=== PATIENT | female | born 1985 | race Caucasian/White ===

== ENCOUNTER 2016-04-18 02:02 | Emergency (ER) | payer OTHER ==
--- NOTE | 2016-04-18 03:17 | ED ORDER SUMMARY ---
..... Patient: ENRIKE PRADO OrderSheet [facility]ly [facility] VisitID: [id number] [place] [address] 30y, F Registration Date/Time: 04/18/2016 ORDER SHEET Weight: 68.0 kg (stated) Allergies: No Known Drug Allergy GENERAL ORDERS: UA-Culture if indicated Urgent (02:04/18/2016 Jake ROSSI) (Ack 2:32 Marie) (2:36 GMarshall R.N.) Urine Urgent (:04/18/2016 Jake ROSSI) (Ack 2:32 Marie) (2:36 GMarshall R.N.) MEDICATION ORDERS: Ibuprofen PO 600 mg (NOW) (02:04/18/2016 Jake ROSSI) (2:38 GMarshall R.N.) IV FLUIDS: ORDER SHEET NOTES: [Electronically signed by Omega Engel R.N. (03:04/18/2016)] [Electronically signed by Delbert Andino MD (09:22 04/19/2016)] [Electronically locked/signed by Omega Engel R.N. (:04/18/2016)]
--- NOTE | 2016-04-18 03:17 | ED NURSING NOTES ---
Clinical Report - Nurses [facility] [address] [place] [address] 04/18/2016 2:03 Patient: ENRIKE PRADO TRIAGE Triage time 02:06. Acuity: LEVEL 3. Chief Complaint: BACK PAIN. Alert. No acute distress. --02: Omega Engel R.N. 02:06 04/18/16. BP: 109/57. HR: 65. RR: 18. O2 saturation: 100%. Temp: 98.4 F. Pain level now 12/17. --02: Omega Engel R.N. Weight: 68 kg stated. Height/Length: 65 inches Per Patient. BMI: 25. --02:08 mOega Engel R.N. Medications None. --02: Omega Engel R.N. Allergies No Known Drug Allergy. --02:07 Omega Engel R.N. History Arrived by private vehicle. Historian: patient. This started just prior to arrival. SOCIAL HX: Unknown if ever smoked. FALL RISK ASSESSMENT: Fall risk assessment completed. No fall risk identified. --02:09 Omega Engel R.N. ( Was awakened by back pain. Pain is low back pain "shooting" down legs). --02:17 Omega Engel R.N. PROBLEMS: Dizziness. Headache. UTI - Urinary Tract Infection. --02:07 Omega Engel R.N. Interventions ID band on patient. --02:09 Omega Engel R.N. PHYSICAL ASSESSMENT GENERAL / NEURO / PSYCH: Alert. Oriented X 4. Appears in no acute distress. RESPIRATORY: Respirations not labored. --02:10 Omega Engel R.N. NURSING PROGRESS NOTES Patient identifiers checked. Call light placed in reach. Bed placed in lowest position. --02:10 Omega Engel R.N. 02:38 04/18/2016 Ibuprofen PO Tablets 600 mg given. --02:38 Omega Engel R.N. 03:23 04/18/2016 Ibuprofen PO Response: pain is improving. --03:23 Omega Engel R.N. DISPOSITION / DISCHARGE Condition at departure: improved. No learning barriers present. Discharge instructions provided and reviewed with the patient. Patient verbalized understanding. Written instructions provided in Sami. The patient was discharged by the physician. She was discharged home. --03:25 Omega Engel R.N. 03:23 04/18/16. BP: 110/67. HR: 70. RR: 20. O2 saturation: 100%. Temp: 98 F. Pain level now 06/17. --03:25 Omega Engel R.N. Locked/Released at 04/18/2016 3:26 by Omega Engel R.N.
--- NOTE | 2016-04-18 03:17 | ED ORDER SUMMARY ---
..... Patient: ENRIKE PRADO OrderSheet [facility] VisitID: [id number] [place] [address] 30y, F Registration Date/Time: 04/18/2016 ORDER SHEET Weight: 68.0 kg (stated) Allergies: No Known Drug Allergy GENERAL ORDERS: UA-Culture if indicated Urgent (02:04/18/2016 Jake ROSSI) (Ack 2:32 Marie) (2:36 GMarshall R.N.) Urine Urgent (:04/18/2016 Jake ROSSI) (Ack 2:32 Marie) (2:36 GMarshall R.N.) MEDICATION ORDERS: Ibuprofen PO 600 mg (NOW) (02:04/18/2016 Jake ROSSI) (2:38 GMarshall R.N.) IV FLUIDS: ORDER SHEET NOTES: [Electronically signed by Omega Engel R.N. (03:04/18/2016)] [Electronically signed by Delbert Andino MD (09:22 04/19/2016)] [Electronically locked/signed by Omega Engel R.N. (:04/18/2016)]
--- NOTE | 2016-04-18 03:17 | ED NURSING NOTES ---
Clinical Report - Nurses [facility] [address] [place] [address] 04/18/2016 2:03 Patient: ENRIKE PRADO TRIAGE Triage time 02:06. Acuity: LEVEL 3. Chief Complaint: BACK PAIN. Alert. No acute distress. --02: Omega Engel R.N. 02:06 04/18/16. BP: 109/57. HR: 65. RR: 18. O2 saturation: 100%. Temp: 98.4 F. Pain level now 12/17. --02: Omega Engel R.N. Weight: 68 kg stated. Height/Length: 65 inches Per Patient. BMI: 25. --02:08 Omega Engel R.N. Medications None. --02: Omega Engel R.N. Allergies No Known Drug Allergy. --02:07 Omega Engel R.N. History Arrived by private vehicle. Historian: patient. This started just prior to arrival. SOCIAL HX: Unknown if ever smoked. FALL RISK ASSESSMENT: Fall risk assessment completed. No fall risk identified. --02:09 Omega Engel R.N. ( Was awakened by back pain. Pain is low back pain "shooting" down legs). --02:17 Omega Engel R.N. PROBLEMS: Dizziness. Headache. UTI - Urinary Tract Infection. --02:07 Omega Engel R.N. Interventions ID band on patient. --02:09 Omega Engel R.N. PHYSICAL ASSESSMENT GENERAL / NEURO / PSYCH: Alert. Oriented X 4. Appears in no acute distress. RESPIRATORY: Respirations not labored. --02:10 Omega Engel R.N. NURSING PROGRESS NOTES Patient identifiers checked. Call light placed in reach. Bed placed in lowest position. --02:10 Omega Engel R.N. 02:38 04/18/2016 Ibuprofen PO Tablets 600 mg given. --02:38 Omega Engel R.N. 03:23 04/18/2016 Ibuprofen PO Response: pain is improving. --03:23 Omega Engel R.N. DISPOSITION / DISCHARGE Condition at departure: improved. No learning barriers present. Discharge instructions provided and reviewed with the patient. Patient verbalized understanding. Written instructions provided in Urdu. The patient was discharged by the physician. She was discharged home. --03:25 Omega Engel R.N. 03:23 04/18/16. BP: 110/67. HR: 70. RR: 20. O2 saturation: 100%. Temp: 98 F. Pain level now 06/17. --03:25 Omega Engel R.N. Locked/Released at 04/18/2016 3:26 by Omega Engel R.N.
--- NOTE | 2016-04-18 03:17 | ED CLINICAL REPORT ---
Clinical Report - Physicians/Mid Levels [facility] [address] [place] [address] 04/18/2016 2:03 Patient: ENRIKE REAL Time Seen: 02:20. Arrived- By private vehicle. Historian- patient. HISTORY OF PRESENT ILLNESS Chief Complaint: BACK PAIN. It is described as being severe and in the area of the left lower lumbar spine, lower lumbar spine and right lower lumbar spine. The quality is noted to be "pain". No radiation. Modifying factors. Not worsened by anything. Not relieved by anything. Onset was today and it is still present. It was gradual in onset. No bladder dysfunction, bowel dysfunction, sensory loss or motor loss. Patient denies an injury. No other injury. Similar symptoms previously: None. REVIEW OF SYSTEMS Last normal menstrual period was 2 weeks ago. Sexual history - sexually active. No contraception. No fever, chills, difficulty with urination, hematuria or sore throat. No cough, chest pain, abdominal pain, nausea or vomiting. The patient has had urinary frequency. PAST HISTORY ML Luis ASHKAN Ops: None Hosp: Childbirth Illness: None. SOCIAL HISTORY Never smoker. ADDITIONAL NOTES The nursing notes have been reviewed. PHYSICAL EXAM Vital Signs: 04/18/2016 02:06 BP: 109/57. HR: 65. RR: 18. O2 saturation: 100%. Temp: 98.4 F. Appearance: (Despite pain scale of 10, Ms Real moves absolutely fluidly). ENT: Pharynx normal. CVS: Heart sounds normal. Respiratory: No respiratory distress. Breath sounds normal. Abdomen: No visible injury. Soft and nontender. Back: Mild soft tissue tenderness in the right lower, left lower and lower central lumbar area. No vertebral point tenderness or CVA tenderness. Skin: Skin cool. Normal skin color. Extremities: Extremities exhibit normal ROM. Extremities nontender. Neuro: No motor deficit. No sensory deficit. Straight leg raising: negative on the right and negative on the left. Reflex exam: right biceps 0, left biceps 0, right patellar 2+, left patellar 2+, right Achilles 1+ and left Achilles 1+. LABS, X-RAYS, AND EKG Laboratory Tests: UA-Culture if indicated: (CLARENCE: 04/18/2016 02:30) ( MsgRcvd 04/18/2016 02:44) Final results Test Result Flag Units (Reference) URINE COLOR YELLOW URINE APPEARANCE CLEAR URINE GLUCOSE NEGATIVE (NEGATIVE) URINE BILIRUBIN NEGATIVE (NEGATIVE) URINE KETONE NEGATIVE (NEGATIVE) URINE SPECIFIC GRAVITY 1.010 (1.010-1.030) URINE PH 6.0 (5.0-8.0) URINE PROTEIN NEGATIVE (NEGATIVE) URINE UROBILINOGEN 0.2 EU/dL (0.2-1.0) URINE NITRITE NEGATIVE (NEGATIVE) URINE BLOOD NEGATIVE (NEGATIVE) URINE LEUK ESTERASE NEGATIVE (NEGATIVE) URINE RBC 0-1 rbc/hpf (0-1) URINE WBC 0-1 wbc/hpf (0-1) URINE EPITHELIAL CELLS 3-5 EPI/hpf (0-5) URINE BACTERIA TRACE (<1+) (NONE SEEN) URINE COMMENT CULT NOT INDICATED URINE CULTURES ARE SET-UP BASED ON THE FOLLOWING CRITERIA:POSITIVE NITRITEPOSITIVE LEUKOCYTE ESTERASEGREATER THAN 10 WHITE BLOOD CELLSMODERATE (2+) OR GREATER BACTERIA Urine: (CLARENCE: 04/18/2016 02:30) ( MsgRcvd 04/18/2016 02:42) Final results Test Result Flag Units (Reference) URINE NEGATIVE . PROGRESS AND PROCEDURES Course of Care: No ADELAIDA report, no frequent ED visits. 10/10 pain with fluid movements. Pt does not have a neurosurgical emergency, or herniated disc. She may have a lumbar strain. Will assure that she is not and does not have a UTI. Disposition: Discharged. CLINICAL IMPRESSION Acute lumbar strain. INSTRUCTIONS (Ibuprofen/Advil 600 mg every 6 hours for 5 days). Prescription Medications: Robaxin 750 mg: Take 2 orally every 6 hours as needed for muscle spasm. Dispense thirty (30). No refills. Substitution is permissible. Follow-up: Follow up with your doctor in five days if not better. Understanding of the discharge instructions verbalized by patient. (Electronically signed by Delbert Andino MD 04/19/2016 9:22)
--- NOTE | 2016-04-19 09:22 | ED MAR SUMMARY ---
..... Medication Administration Record [facility] [address] [place] [address] Patient: ENRIKE PRADO Visit ID: [id number] 30y, F Weight: 68.0 kg Height/Length: 65 in BMI: 25 ALLERGIES: No Known Drug Allergy Given 02:38 04/18/2016 Omega Engel R.N. Medication Administered: IBUPROFEN [PO], Dose: 600 mg Tablets PO. Medication Ordered: Ibuprofen PO 600 mg (NOW).
--- NOTE | 2016-04-19 09:22 | ED MED RECONCILIATION SUMMARY ---
Patient: ENRIKE PRDAO Medication Reconciliation Report [facility] VisitID: [id number] [address] [place] [address] 30y, F Registration Date/Time: 04/18/2016 Weight: 68.0 kg Height/Length: 65 in. BMI: 25.0 ALLERGIES: No Known Drug Allergy The patient's Home Medications are listed below: NONE. The source(s) of the original Home Medication information: Not obtained. The following Medications were given to the patient in the Emergency Department: Ibuprofen [PO] PO 600 mg, administered: 04/18/2016 2:38:00 AM The following Medications were prescribed to the patient: Robaxin 750 mg: Take 2 orally every 6 hours as needed for muscle spasm. Dispense thirty (30). No refills. Substitution is permissible. -- Delbert Andino MD
--- NOTE | 2016-04-19 09:22 | ED MAR SUMMARY ---
..... Medication Administration Record [address] [place] [address] Patient: ENRIKE PRADO Visit ID: [id number] 30y, F Weight: 68.0 kg Height/Length: 65 in BMI: 25 ALLERGIES: No Known Drug Allergy Given 02:38 04/18/2016 Omega Engel R.N. Medication Administered: IBUPROFEN [PO], Dose: 600 mg Tablets PO. Medication Ordered: Ibuprofen PO 600 mg (NOW).
--- NOTE | 2016-04-19 09:22 | ED DISCHARGE INSTRUCTIONS ---
Patient: ENRIKE PRADO General Instructions [facility] VisitID: [id number] [place] [address] 30y, F Registration Date/Time: 04/18/2016 Acute lumbar strain. INSTRUCTIONS (Ibuprofen/Advil 600 mg every 6 hours for 5 days). Prescription Medications: Robaxin 750 mg: Take 2 orally every 6 hours as needed for muscle spasm. Dispense thirty (30). No refills. Substitution is permissible. Follow-up: Follow up with your doctor in five days if not better. Understanding of the discharge instructions verbalized by patient. ADDITIONAL INFORMATION Back Pain [Acute Or Chronic] Back pain is usually caused by an injury to the muscles or ligaments of the spine. Sometimes the disks that separate each bone in the spine may bulge and cause pain by pressing on a nearby nerve. Back pain may also appear after a sudden twisting/bending force (such as in a car accident), after a simple awkward movement, or lifting something heavy with poor body positioning. In either case, muscle spasm is often present and adds to the pain. Acute back pain usually gets better in one to two weeks. Back pain related to disk disease, arthritis in the spinal joints or spinal stenosis (narrowing of the spinal canal) can become chronic and last for months or years. Unless you had a physical injury (for example, a car accident or fall) X-rays are usually not ordered for the initial evaluation of back pain. If pain continues and does not respond to medical treatment, x-rays and other tests may be performed at a later time. Home Care: You may need to stay in bed the first few days. But, as soon as possible, begin sitting or walking to avoid problems with prolonged bed rest (muscle weakness, worsening back stiffness and pain, blood clots in the legs). When in bed, try to find a position of comfort. A firm mattress is best. Try lying flat on your back with pillows under your knees. You can also try lying on your side with your knees bent up towards your chest and a pillow between your knees. Avoid prolonged sitting. This puts more stress on the lower back than standing or walking. During the first two days after injury, apply an ICE PACK to the painful area for 20 minutes every 2-4 hours. This will reduce swelling and pain. HEAT (hot shower, hot bath or heating pad) works well for muscle spasm. You can start with ice, then switch to heat after two days. Some patients feel best alternating ice and heat treatments. Use the one method that feels the best to you. You may use acetaminophen (Tylenol) or ibuprofen (Motrin, Advil) to control pain, unless another pain medicine was prescribed. [NOTE: If you have chronic liver or kidney disease or ever had a stomach ulcer or GI bleeding, talk with your doctor before using these medicines.] Be aware of safe lifting methods and do not lift anything over 15 pounds until all the pain is gone. Follow Up with your doctor or this facility if your symptoms do not start to improve after one week. Physical therapy may be needed. [NOTE: If X-rays were taken, they will be reviewed by a radiologist. You will be notified of any new findings that may affect your care.] Get Prompt Medical Attention if any of the following occur: Pain becomes worse or spreads to your legs Weakness or numbness in one or both legs Loss of bowel or bladder control Numbness in the groin or genital area You have been given the following additional information: Back Pain (Acute Or Chronic) (Electronically signed by Delbert Andino MD 04/19/2016 9:22)
--- NOTE | 2016-04-19 09:22 | ED MED RECONCILIATION SUMMARY ---
Patient: ENRIKE PRADO Medication Reconciliation Report [facility] VisitID: [id number] [address] [place] [address] 30y, F Registration Date/Time: 04/18/2016 Weight: 68.0 kg Height/Length: 65 in. BMI: 25.0 ALLERGIES: No Known Drug Allergy The patient's Home Medications are listed below: NONE. The source(s) of the original Home Medication information: Not obtained. The following Medications were given to the patient in the Emergency Department: Ibuprofen [PO] PO 600 mg, administered: 04/18/2016 2:38:00 AM The following Medications were prescribed to the patient: Robaxin 750 mg: Take 2 orally every 6 hours as needed for muscle spasm. Dispense thirty (30). No refills. Substitution is permissible. -- Delbert Andino MD
== END 2016-04-18 03:25 | disposition home or self-care (01) ==
LOC: ED SRH 02:02
DX: S39.012A Strain of muscle, fascia and tendon of lower back, initial encounter (principal); X58.XXXA Exposure to other specified factors, initial encounter; Y93.9 Activity, unspecified; Y99.9 Unspecified external cause status; Y92.9 Unspecified place or not applicable
CPT/HCPCS: 90004; 93070

== ENCOUNTER 2016-07-02 08:53 | Emergency (ER) | payer OTHER ==
--- NOTE | 2016-07-02 10:19 | DIAGNOSTIC IMAGING REPORT ---
PROCEDURE: XR CHEST 2 VIEW INDICATION: CHEST PAIN TECHNIQUE: PA and lateral views. COMPARISON: None. FINDINGS: Lungs are clear. Heart and mediastinum are normal. Thorax is normal. IMPRESSION: 1. Negative chest.
--- NOTE | 2016-07-02 11:14 | ED CLINICAL REPORT ---
Clinical Report - Physicians/Mid Levels [facility] [address] [place] [address] 07/02/2016 8:53 Patient: ENRIKE PRADO Time Seen: 09:05; initial patient contact. Arrived- By private vehicle. Historian- patient. HISTORY OF PRESENT ILLNESS Chief Complaint: CHEST PAIN. At its maximum, severity described as mild. When seen in the E.D., severity described as mild. Modifying factors. Not worsened by anything. Not relieved by anything. This started about 2 days ago. It is described as "pain" and it is described as located in the central chest and left chest area. No radiation. No nausea, vomiting, difficulty breathing or diaphoresis. Similar symptoms previously: None. Recent medical care: The patient was seen recently in a clinic. REVIEW OF SYSTEMS No fever, chills, cough, pedal edema or calf pain. All systems otherwise negative, except as recorded above. PAST HISTORY Lumbar Strain. Dizziness. Headache. UTI - Urinary Tract Infection. \\SURGERIES: . SOCIAL HISTORY Never smoker. Occasional alcohol use. No drug use. ADDITIONAL NOTES The nursing notes have been reviewed. PHYSICAL EXAM Vital Signs: 07/02/2016 08:55 BP: 125/81. HR: 66. RR: 18. O2 saturation: 100%. Temp: 98.3 F. Pain level now: 1/10. Have been reviewed as normal. Appearance: Alert. Oriented X3. No acute distress. Eyes: Eyes normal inspection. ENT: Pharynx normal. CVS: Normal heart rate and rhythm. Heart sounds normal. Respiratory: No respiratory distress. Breath sounds normal. Chest nontender. Abdomen: Soft and nontender. Bowel sounds normal. No mass. Skin: Skin warm and dry. Normal skin color. Extremities: No calf tenderness. No lower extremity edema. Neuro: Oriented X 3. LABS, X-RAYS, AND EKG EKG: EKG time: (0908). No acute process. No acute ischemia. Bradycardia (ventricular rate 59). Normal P waves. Normal DAVIDA. Normal QRS complex. Normal axis. Normal ST and T waves, QT and QTc. Prior EKG unavailable. The study has been interpreted contemporaneously by me. The study has been independently viewed by me. The EKG appears to be a good tracing. Interpretation time: 09. Chest X-ray: No acute disease. Normal lung markings present. Normal heart size. Mediastinum normal. Great vessels normal. Soft tissues normal. No infiltrate. No fracture. No bony lesion present. Views: PA and lateral. Technique: good. The X-rays were independently viewed by me and interpreted contemporaneously by me. Prior films were not available for comparison. Interpretation time: 09:47. Laboratory Tests: UA-Culture if indicated: (CLARENCE: 07/02/2016 09:25) ( [facility] 07/02/2016 10:42) Final results Test Result Flag Units (Reference) URINE COLOR YELLOW URINE APPEARANCE CLEAR URINE GLUCOSE NEGATIVE (NEGATIVE) URINE BILIRUBIN NEGATIVE (NEGATIVE) URINE KETONE NEGATIVE (NEGATIVE) URINE SPECIFIC GRAVITY 1.010 (1.010-1.030) URINE PH 7.0 (5.0-8.0) URINE PROTEIN NEGATIVE (NEGATIVE) URINE UROBILINOGEN 0.2 EU/dL (0.2-1.0) URINE NITRITE NEGATIVE (NEGATIVE) URINE BLOOD NEGATIVE (NEGATIVE) URINE LEUK ESTERASE TRACE (NEGATIVE) URINE RBC NONE SEEN rbc/hpf (0-1) URINE WBC 1-3 wbc/hpf (0-1) URINE EPITHELIAL CELLS 3-5 EPI/hpf (0-5) URINE BACTERIA FEW (1+) (NONE SEEN) URINE COMMENT CULTURE INDICATED URINE CULTURES ARE SET-UP BASED ON THE FOLLOWING CRITERIA:POSITIVE NITRITEPOSITIVE LEUKOCYTE ESTERASEGREATER THAN 10 WHITE BLOOD CELLSMODERATE (2+) OR GREATER BACTERIA Urine: (CLARENCE: 07/02/2016 09:25) ( [facility] 07/02/2016 10:26) Final results Test Result Flag Units (Reference) URINE NEGATIVE CBC w Diff: (CLARENCE: 07/02/2016 09:15) ( [facility] 07/02/2016 10:08) Final results Test Result Flag Units (Reference) WHITE BLOOD COUNT 4.2 L K/uL (4.5-11.5) RED BLOOD COUNT 4.65 M/uL (4.00-5.20) HEMOGLOBIN 12.9 gm/dL (12.0-16.0) HEMATOCRIT 37.9 % (36.0-46.0) MEAN CELL VOLUME 82 fL (80-100) MEAN CORPUSCULAR HGB 28 pg (26-34) MEAN CORPUSCULAR HGB CONC 34 g/dL (31-37) RED CELL DISTRIBUTION WIDTH 13.0 % (11.6-14.8) PLATELET COUNT 217 K/uL (150-400) NEUTROPHIL % 51.2 % (50-75) LYMPH % 34.5 % (25-40) MONO % 9.0 % (3-14) EOSINOPHIL % 4.6 H % (0-4) BASOPHIL % 0.7 % (0-2) CHEM 13 PANEL: (CLARENCE: 07/02/2016 09:15) ( MsgRcvd 07/02/2016 10:08) Final results Test Result Flag Units (Reference) GLUCOSE 87 mg/dL (70-110) BUN 12 mg/dL (7-18) CREATININE 0.7 mg/dL (0.6-1.3) Estimated GFR >60 mL/min Estimated GFR- >60 mL/min Note: Persistent reduction over 3 months in eGFR<60 mL/min/1.73 m2 defines CKD. Patients with eGFR values>=60 mL/min/1.73 m2 may also have CKD if evidence ofpersistent proteinuria. Additional information may be foundat www.kidney.org. SODIUM 140 mmol/L (136-145) POTASSIUM 4.0 mmol/L (3.5-5.1) CHLORIDE 108 H mmol/L (98-107) CARBON DIOXIDE 26 mmol/L (21-32) CALCIUM 8.9 mg/dL (8.5-10.1) TOTAL PROTEIN 7.1 g/dL (6.4-8.2) ALBUMIN 3.7 g/dL (3.3-5.0) BILIRUBIN, TOTAL 1.2 H mg/dL (0.0-1.0) ALKALINE PHOSPHATASE 57 U/L (46-116) AST (SGOT) 15 U/L (15-37) ALT (SGPT) 19 U/L (12-78) CPK 78 U/L (24-260) MAGNESIUM 1.8 mg/dL (1.8-2.4) TROPONIN I <0.05 L ng/mL (0.00-1.5) TROPONIN REFERENCE RANGE:<0.1 NEGATIVE0.1-1.5 INDETERMINANT>1.5 POSITIVE . PROGRESS AND PROCEDURES Disposition: Discharged home in good and improved condition. Condition: good. CLINICAL IMPRESSION Atypical chest pain .12 lead EKG performed. Acute urinary tract infection with cystitis. INSTRUCTIONS Your Current Medications: STOP TAKING THE FOLLOWING MEDICATIONS: Cipro Oral : Tablet 500 mg, 1 tablet 2x a day. Prescription Medications: Macrobid 100 mg: take 1 capsule orally every 12 hours for 7 days. Substitution is permissible. Follow-up: Follow up with your doctor in about two days. Call for an appointment. Screening today revealed the patient's blood pressure to be in the normal range. (Electronically signed by Jono Patel Dr. 07/02/2016 21:42)
--- NOTE | 2016-07-02 11:14 | ED NURSING NOTES ---
Clinical Report - Nurses [facility] [address] [place] [address] 07/02/2016 8:53 Patient: ENRIKE PRADO TRIAGE Triage time 08:55 Jul 02 2016. Acuity: LEVEL 3. Chief Complaint: CHEST PAIN and SHORTNESS OF BREATH (Chest pain and numbness in her feet since last night, numbness has recently subsided). 09:02 07/02/16. SEPSIS SCREEN: Sepsis Screen. Negative (no infection suspected/documented). RADHA COMA SCORE: [place] Coma Scale: 15- eyes open spontaneously (4); best verbal response- oriented x 4 (5); best motor response- obeys commands (6). --09:02 Sona Rahman R.N. 08:55 07/02/16. BP: 125/81 (regular adult cuff) taken on the left arm, while sitting. HR: 66. RR: 18. O2 saturation: 100% on room air. Temp: 98.3 F (oral). Pain level now: 03/19. Additional comments: left sided chest pain. --09:02 Sona Rahman R.N. Weight: 68 kg stated. Height/Length: 65 inches Per Patient. BMI: 25. --08:59 Sona Rahman R.N. Medications Cipro Oral (Tablet 500 mg) 1 tablet, 2x a day. --09:32 Sona Rahman R.N. The following entry was struck by Sona Rahman R.N., 09:33 (07/02/16) Reason - other. <<STRICKEN ENTRY-- Antibiotic ? . --08:58 Sona Rahman R.N. --END STRIKE>>. Allergies No Known Drug Allergy. --08:58 oSna Rahman R.N. History Arrived by private vehicle. Historian: patient. Primary physician (JEFFREY ALEGRE). ( Patient has UTI, started on ABO but only took 2 doses she felt feet getting numb, stopped ABO, she has been under a lot of stress she admits. Patient says she had an EKG at walk in clinic at [place], she thinks its because of her BP). She has had difficulty breathing and nausea. Reports experiencing sweating episodes. 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 PAST MEDICAL HX: Last normal menstrual period- 1 months ago. SOCIAL HX: Never smoker. Occasional alcohol use. No drug use. No infectious disease exposure. ABUSE ASSESSMENT: No report of abuse. --09:02 Sona Rahman R.N. PROBLEMS: Lumbar Strain. Dizziness. Headache. UTI - Urinary Tract Infection. --08:59 Sona Rahman R.N. ADDITIONAL SURGERIES: . --08:59 Sona Rahman R.N. Interventions ID band on patient. To treatment room. --09:02 Sona Rahman R.N. PHYSICAL ASSESSMENT 09:03 07/02/16. Ambulatory to room. Patient gowned. GENERAL / NEURO / PSYCH: Alert. Oriented X 4. Appears in no acute distress. Appears anxious. HEENT: Mucous membranes are pink. RESPIRATORY: Respirations not labored. Chest wall tenderness. Breath sounds within normal limits. CVS: Heart sounds within normal limits. Pulses within normal limits. Capillary refill less than 2 seconds. GI / : Abdomen soft and nontender. EXTREMITIES: No lower extremity edema. SKIN: Skin is warm. Normal skin turgor. Skin is non-tender. --09:03 Sona Rahman R.N. NURSING PROGRESS NOTES 09:03 07/02/16. The plan of care for this patient has been created. Monitoring of patient in place. Patient gowned. Head of bed elevated. Reassurance given. Two patient identifiers checked. Call light placed in reach. Side rails up x 1. Bed placed in lowest position. Brakes of bed on. Patient ready for evaluation- chart flagged and ED physician notified. --09:03 Sona Rahman R.N. EKG time: (907). EKG was ordered, performed by a tech and shown to the ED physician. --09:19 Jazmine Trevino ER Tech1 09:20 07/02/2016 Site #1 started via IV in the left antecubital space with an 20g angiocath, with aseptic technique and good blood return; one attempt. Blood drawn: rainbow set. Labeled in the presence of the patient and sent to the lab. Saline lock flushed with 10 mL saline. --09:20 Sona Rahman R.N. ( Patient up to use restroom). --09:21 Sona Rahman R.N. Patient walked to radiology with [employer]. (09:Jul 02 2016). --09:32 Sona Rahman R.N. 09:37 07/02/16. BP: 114/54 (large adult cuff) taken on the right arm, while sitting. HR: 66. RR: 18. O2 saturation: 100% on room air. Pain level now: 03/19. --09:37 Sona Rahman R.N. Patient walked back to ED from radiology with tech. (09:Jul 02 2016). --09:37 Sona Rahman R.N. 10:07 07/02/16. BP: 107/56 (regular adult cuff) taken on the right arm, while sitting. HR: 68. RR: 18. O2 saturation: 99% on room air. Pain level now: 03/19. --10:08 Sona Rahman R.N. 10:15 07/02/16. ( Patient requested water, this was given). --10:15 Sona Rahman R.N. DISPOSITION / DISCHARGE 11:07/02/2016 Site #1 removed upon discharge. Catheter intact. --11:27 Miles Oneal R.N. 11:27 07/02/16. Condition at departure: improved. The goals identified in the patient's plan of care were met. No learning barriers present. Discharge instructions provided and reviewed with the patient. Reviewed warnings. Reviewed medication(s). Treatments reviewed. Patient verbalized understanding. Written instructions provided in Gambian. The patient was discharged by the physician. She was discharged home and accompanied by family. She left the Emergency Department ambulatory and via private vehicle. Family member driving. FALL RISK ASSESSMENT: Fall risk assessment completed. No fall risk identified. --11:27 Miles Oneal R.N. 11:27 07/02/16. BP: 112/71. HR: 82. RR: 14. O2 saturation: 100% on room air. Temp: 98.3 F (oral). --11:27 Miles Oneal R.N. 11:27 07/02/16. Departure time: :. --11:27 Miles Oneal R.N. Locked/Released at 07/02/2016 11:29 by Miles Oneal R.N.
--- NOTE | 2016-07-02 11:14 | ED NURSING NOTES ---
Clinical Report - Nurses [facility] [address] [place] [address] 07/02/2016 8:53 Patient: ENRIKE PRADO TRIAGE Triage time 08:55 Jul 02 2016. Acuity: LEVEL 3. Chief Complaint: CHEST PAIN and SHORTNESS OF BREATH (Chest pain and numbness in her feet since last night, numbness has recently subsided). 09:02 07/02/16. SEPSIS SCREEN: Sepsis Screen. Negative (no infection suspected/documented). RADHA COMA SCORE: [place] Coma Scale: 15- eyes open spontaneously (4); best verbal response- oriented x 4 (5); best motor response- obeys commands (6). --09:02 Sona Rahman R.N. 08:55 07/02/16. BP: 125/81 (regular adult cuff) taken on the left arm, while sitting. HR: 66. RR: 18. O2 saturation: 100% on room air. Temp: 98.3 F (oral). Pain level now: 03/19. Additional comments: left sided chest pain. --09:02 Sona Rahman R.N. Weight: 68 kg stated. Height/Length: 65 inches Per Patient. BMI: 25. --08:59 Sona Rahman R.N. Medications Cipro Oral (Tablet 500 mg) 1 tablet, 2x a day. --09:32 Sona Rahman R.N. The following entry was struck by Sona Rahman R.N., 09:33 (07/02/16) Reason - other. <<STRICKEN ENTRY-- Antibiotic ? . --08:58 Sona Rahman R.N. --END STRIKE>>. Allergies No Known Drug Allergy. --08:58 Sona Rahman R.N. History Arrived by private vehicle. Historian: patient. Primary physician (JEFFREY ALEGRE). ( Patient has UTI, started on ABO but only took 2 doses she felt feet getting numb, stopped ABO, she has been under a lot of stress she admits. Patient says she had an EKG at walk in clinic at [place], she thinks its because of her BP). She has had difficulty breathing and nausea. Reports experiencing sweating episodes. 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 PAST MEDICAL HX: Last normal menstrual period- 1 months ago. SOCIAL HX: Never smoker. Occasional alcohol use. No drug use. No infectious disease exposure. ABUSE ASSESSMENT: No report of abuse. --09:02 Sona Rahman R.N. PROBLEMS: Lumbar Strain. Dizziness. Headache. UTI - Urinary Tract Infection. --08:59 Sona Rahman R.N. ADDITIONAL SURGERIES: . --08:59 Sona Rahman R.N. Interventions ID band on patient. To treatment room. --09:02 Sona Rahman R.N. PHYSICAL ASSESSMENT 09:03 07/02/16. Ambulatory to room. Patient gowned. GENERAL / NEURO / PSYCH: Alert. Oriented X 4. Appears in no acute distress. Appears anxious. HEENT: Mucous membranes are pink. RESPIRATORY: Respirations not labored. Chest wall tenderness. Breath sounds within normal limits. CVS: Heart sounds within normal limits. Pulses within normal limits. Capillary refill less than 2 seconds. GI / : Abdomen soft and nontender. EXTREMITIES: No lower extremity edema. SKIN: Skin is warm. Normal skin turgor. Skin is non-tender. --09:03 Sona Rahman R.N. NURSING PROGRESS NOTES 09:03 07/02/16. The plan of care for this patient has been created. Monitoring of patient in place. Patient gowned. Head of bed elevated. Reassurance given. Two patient identifiers checked. Call light placed in reach. Side rails up x 1. Bed placed in lowest position. Brakes of bed on. Patient ready for evaluation- chart flagged and ED physician notified. --09:03 Sona Rahman R.N. EKG time: (907). EKG was ordered, performed by a tech and shown to the ED physician. --09:19 Jazmine Trevino ER Tech1 09:20 07/02/2016 Site #1 started via IV in the left antecubital space with an 20g angiocath, with aseptic technique and good blood return; one attempt. Blood drawn: rainbow set. Labeled in the presence of the patient and sent to the lab. Saline lock flushed with 10 mL saline. --09:20 Sona Rahman R.N. ( Patient up to use restroom). --09:21 Sona Rahman R.N. Patient walked to radiology with [employer]. (09:Jul 02 2016). --09:32 Sona Rahman R.N. 09:37 07/02/16. BP: 114/54 (large adult cuff) taken on the right arm, while sitting. HR: 66. RR: 18. O2 saturation: 100% on room air. Pain level now: 03/19. --09:37 Sona Rahman R.N. Patient walked back to ED from radiology with tech. (09:Jul 02 2016). --09:37 Sona Rahman R.N. 10:07 07/02/16. BP: 107/56 (regular adult cuff) taken on the right arm, while sitting. HR: 68. RR: 18. O2 saturation: 99% on room air. Pain level now: 03/19. --10:08 Sona Rahman R.N. 10:15 07/02/16. ( Patient requested water, this was given). --10:15 Sona Rahman R.N. DISPOSITION / DISCHARGE 11:07/02/2016 Site #1 removed upon discharge. Catheter intact. --11:27 Miles Oneal R.N. 11:27 07/02/16. Condition at departure: improved. The goals identified in the patient's plan of care were met. No learning barriers present. Discharge instructions provided and reviewed with the patient. Reviewed warnings. Reviewed medication(s). Treatments reviewed. Patient verbalized understanding. Written instructions provided in Samoan. The patient was discharged by the physician. She was discharged home and accompanied by family. She left the Emergency Department ambulatory and via private vehicle. Family member driving. FALL RISK ASSESSMENT: Fall risk assessment completed. No fall risk identified. --11:27 Miles Oneal R.N. 11:27 07/02/16. BP: 112/71. HR: 82. RR: 14. O2 saturation: 100% on room air. Temp: 98.3 F (oral). --11:27 Miles Oneal R.N. 11:27 07/02/16. Departure time: :. --11:27 Miles Oneal R.N. Locked/Released at 07/02/2016 11:29 by Miles Oneal R.N.
--- NOTE | 2016-07-02 11:14 | ED ORDER SUMMARY ---
..... Patient: ENRIKE PRADO OrderSheet [facility] VisitID: [id number] [address] [place] [address] 30y, F Registration Date/Time: 07/02/2016 ORDER SHEET Weight: 68.0 kg (stated) Allergies: No Known Drug Allergy GENERAL ORDERS: EKG - ER Stat (09:07/02/2016 LNations ER Tech1 per protocol) (9:19 KHoerner) Chest 2V Urgent (09:07/02/2016 Diamond Talbot) (Ack 9:24 KHoerner) (9:35 KHoerner) UA-Culture if indicated Urgent (:07/02/2016 Diamond Talbot) (Ack 9:24 KHoerner) (9:27 JSanders R.N.) Cardiac Panel Stat (:07/02/2016 Diamond Talbot) (Ack 9:24 KHoerner) (9:27 JSanders R.N.) Urine Urgent (09:07/02/2016 Diamond Talbot) (Ack 9:24 KHoerner) (9:27 JSanders R.N.) MEDICATION ORDERS: IV FLUIDS: IV Saline Lock (:07/02/2016 Diamond Talbot) (9:33 JSanders R.N.) ORDER SHEET NOTES: [Electronically signed by Miles Oneal R.N. (11:29 07/02/2016)] [Electronically signed by Jono Patel Dr. (21:42 07/02/2016)] [Electronically locked/signed by Miles Oneal R.N. (11:29 07/02/2016)]
--- NOTE | 2016-07-02 11:14 | ED ORDER SUMMARY ---
..... Patient: ENRIKE PRADO OrderSheet [facility] VisitID: [id number] [address] [place] [address] 30y, F Registration Date/Time: 07/02/2016 ORDER SHEET Weight: 68.0 kg (stated) Allergies: No Known Drug Allergy GENERAL ORDERS: EKG - ER Stat (09:07/02/2016 LNations ER Tech1 per protocol) (9:19 KHoerner) Chest 2V Urgent (09:07/02/2016 Diamond Talbot) (Ack 9:24 KHoerner) (9:35 KHoerner) UA-Culture if indicated Urgent (:07/02/2016 Diamond Talbot) (Ack 9:24 KHoerner) (9:27 JSanders R.N.) Cardiac Panel Stat (:07/02/2016 Diamond Talbot) (Ack 9:24 KHoerner) (9:27 JSanders R.N.) Urine Urgent (09:07/02/2016 Diamond Talbot) (Ack 9:24 KHoerner) (9:27 JSanders R.N.) MEDICATION ORDERS: IV FLUIDS: IV Saline Lock (:07/02/2016 Diamond Talbot) (9:33 JSanders R.N.) ORDER SHEET NOTES: [Electronically signed by Miles Oneal R.N. (11:29 07/02/2016)] [Electronically signed by Joon Patel Dr. (21:42 07/02/2016)] [Electronically locked/signed by Miles Oneal R.N. (11:29 07/02/2016)]
--- NOTE | 2016-07-02 21:42 | ED MAR SUMMARY ---
..... Medication Administration Record [facility] [address] [place], [place] [id number] Patient: ENRIKE PRADO Visit ID: [id number] 30y, F Weight: 68.0 kg Height/Length: 65 in BMI: 25 ALLERGIES: No Known Drug Allergy
--- NOTE | 2016-07-02 21:42 | ED DISCHARGE INSTRUCTIONS ---
Patient: ENRIKE PRADO General Instructions [facility] VisitID: [id number] [address] [place] [address] 30y, F Registration Date/Time: 07/02/2016 Atypical chest pain .12 lead EKG performed. Acute urinary tract infection with cystitis. INSTRUCTIONS Your Current Medications: STOP TAKING THE FOLLOWING MEDICATIONS: Cipro Oral : Tablet 500 mg, 1 tablet 2x a day. Prescription Medications: Macrobid 100 mg: take 1 capsule orally every 12 hours for 7 days. Substitution is permissible. Follow-up: Follow up with your doctor in about two days. Call for an appointment. Screening today revealed the patient's blood pressure to be in the normal range. ADDITIONAL INFORMATION Chest Pain, Noncardiac Based on your visit today, the exact cause of your chest pain is not certain. Your condition does not seem serious and your pain does not appear to be coming from your heart. However, sometimes the signs of a serious problem take more time to appear. Therefore, please watch for the warning signs listed below. Home Care: Rest today and avoid strenuous activity. Take any prescribed medicine as directed. Follow Up with your doctor or this facility as instructed or if you do not start to feel better within 24 hours. Get Prompt Medical Attention if any of the following occur: A change in the type of pain: if it feels different, becomes more severe, lasts longer, or begins to spread into your shoulder, arm, neck, jaw or back Shortness of breath or increased pain with breathing Cough with dark colored sputum (phlegm) or blood Weakness, dizziness, or fainting Fever of 100.4F (38C) or higher, or as directed by your healthcare provider Swelling, pain or redness in one leg Bladder Infection,Female (Adult) A bladder infection ("cystitis" or "UTI") usually causes a constant urge to urinate and a burning when passing urine. Urine may be cloudy, smelly or dark. There may be pain in the lower abdomen. A bladder infection occurs when bacteria from the vaginal area enter the bladder opening (urethra). This can occur from sexual intercourse, wearing tight clothing, dehydration and other factors. Home Care: Drink lots of fluids (at least 6-8 glasses a day, unless you must restrict fluids for other medical reasons). This will force the medicine into your urinary system and flush the bacteria out of your body. Avoid sexual intercourse until your symptoms are gone. Avoid caffeine, alcohol and spicy foods. These can irritate the bladder. A bladder infection is treated with antibiotics. You may also be given Pyridium (generic = phenazopyridine) to reduce the burning sensation. This medicine will cause your urine to become a bright orange color. The orange urine may stain clothing. You may wear a pad or panty-liner to protect clothing. Preventing Future Infections: Always wipe from front to back after a bowel movement. Keep the genital area clean and dry. Drink plenty of fluids each day to avoid dehydration. Both sexual partners should wash before intercourse. Urinate right after intercourse to flush out the bladder. Wear cotton underwear and cotton-lined panty hose; avoid tight-fitting pants. If you are on control pills and are having frequent bladder infections, discuss with your doctor. Follow Up: Return to this facility or see your doctor if ALL symptoms are not gone after three days of treatment. Get Prompt Medical Attention if any of the following occur: Fever of 100.4F (38C) or higher, or as directed by your healthcare provider No improvement by the third day of treatment Increasing back or abdominal pain Repeated vomiting; unable to keep medicine down Weakness, dizziness or fainting Vaginal discharge Pain, redness or swelling in the labia (outer vaginal area) Nitrofurantoin, Nitrofurantoin, Macrocrystalline Oral capsule What is this medicine? NITROFURANTOIN (jacqui angeli KEBEDE toyn) is an antibiotic. It is used to treat urinary tract infections. How should I use this medicine? Take this medicine by mouth with a glass of water. Follow the directions on the prescription label. Take this medicine with food or milk. Take your doses at regular intervals. Do not take your medicine more often than directed. Do not stop taking except on your doctor's advice. Talk to your quencher operator regarding the use of this medicine in children. While this drug may be prescribed for selected conditions, precautions do apply. What side effects may I notice from receiving this medicine? Side effects that you should report to your doctor or health home care assistant as soon as possible: allergic reactions like skin rash or hives, swelling of the face, lips, or tongue chest pain cough difficulty breathing dizziness, drowsiness fever or infection joint aches or pains pale or blue-tinted skin redness, blistering, peeling or loosening of the skin, including inside the mouth tingling, burning, pain, or numbness in hands or feet unusual bleeding or bruising unusually weak or tired yellowing of eyes or skin Side effects that usually do not require medical attention (report to your doctor or health home care assistant if they continue or are bothersome): dark urine diarrhea headache loss of appetite nausea or vomiting temporary hair loss What may interact with this medicine? antacids containing magnesium trisilicate probenecid quinolone antibiotics like ciprofloxacin, lomefloxacin, norfloxacin and ofloxacin sulfinpyrazone What if I miss a dose? If you miss a dose, take it as soon as you can. If it is almost time for your next dose, take only that dose. Do not take double or extra doses. Where should I keep my medicine? Keep out of the reach of children. Store at room temperature between 15 and 30 degrees C (59 and 86 degrees F). Protect from light. Throw away any unused medicine after the expiration date. What should I tell my health care provider before I take this medicine? They need to know if you have any of these conditions: anemia diabetes lzsurox-[id number]-yojiyqknm dehydrogenase deficiency kidney disease liver disease lung disease other chronic illness an unusual or allergic reaction to nitrofurantoin, other antibiotics, other medicines, foods, dyes or preservatives or trying to get breast-feeding What should I watch for while using this medicine? Tell your doctor or health home care assistant if your symptoms do not improve or if you get new symptoms. Drink several glasses of water a day. If you are taking this medicine for a long time, visit your doctor for regular checks on your progress. If you are diabetic, you may get a false positive result for sugar in your urine with certain brands of urine tests. Check with your doctor. You have been given the following additional information: Chest Pain, Noncardiac Bladder Infection, Female (Adult) Nitrofurantoin, Nitrofurantoin, Macrocrystalline Oral capsule (Electronically signed by Jono Patel Dr. 07/02/2016 21:42)
--- NOTE | 2016-07-02 21:42 | ED MAR SUMMARY ---
..... Medication Administration Record [facility] [address] [place], [place] [id number] Patient: ENRIKE PRADO Visit ID: [id number] 30y, F Weight: 68.0 kg Height/Length: 65 in BMI: 25 ALLERGIES: No Known Drug Allergy
--- NOTE | 2016-07-02 21:42 | ED MED RECONCILIATION SUMMARY ---
Patient: ENRIKE PRADO Medication Reconciliation Report [facility] VisitID: [id number] [address] [place] [address] 30y, F Registration Date/Time: 07/02/2016 Weight: 68.0 kg Height/Length: 65 in. BMI: 25.0 ALLERGIES: No Known Drug Allergy The patient's Home Medications are listed below: STOP TAKING THE FOLLOWING MEDICATIONS: Cipro Oral (500 mg) 1 tablet, 2x a day The source(s) of the original Home Medication information: Not obtained. The following Medications were given to the patient in the Emergency Department: None. The following Medications were prescribed to the patient: Macrobid 100 mg: take 1 capsule orally every 12 hours for 7 days. Substitution is permissible. -- Jono Patel Dr.
--- NOTE | 2016-07-02 21:42 | ED DISCHARGE INSTRUCTIONS ---
Patient: ENRIKE PRADO General Instructions [facility] VisitID: [id number] [address] [place] [address] 30y, F Registration Date/Time: 07/02/2016 Atypical chest pain .12 lead EKG performed. Acute urinary tract infection with cystitis. INSTRUCTIONS Your Current Medications: STOP TAKING THE FOLLOWING MEDICATIONS: Cipro Oral : Tablet 500 mg, 1 tablet 2x a day. Prescription Medications: Macrobid 100 mg: take 1 capsule orally every 12 hours for 7 days. Substitution is permissible. Follow-up: Follow up with your doctor in about two days. Call for an appointment. Screening today revealed the patient's blood pressure to be in the normal range. ADDITIONAL INFORMATION Chest Pain, Noncardiac Based on your visit today, the exact cause of your chest pain is not certain. Your condition does not seem serious and your pain does not appear to be coming from your heart. However, sometimes the signs of a serious problem take more time to appear. Therefore, please watch for the warning signs listed below. Home Care: Rest today and avoid strenuous activity. Take any prescribed medicine as directed. Follow Up with your doctor or this facility as instructed or if you do not start to feel better within 24 hours. Get Prompt Medical Attention if any of the following occur: A change in the type of pain: if it feels different, becomes more severe, lasts longer, or begins to spread into your shoulder, arm, neck, jaw or back Shortness of breath or increased pain with breathing Cough with dark colored sputum (phlegm) or blood Weakness, dizziness, or fainting Fever of 100.4F (38C) or higher, or as directed by your healthcare provider Swelling, pain or redness in one leg Bladder Infection,Female (Adult) A bladder infection ("cystitis" or "UTI") usually causes a constant urge to urinate and a burning when passing urine. Urine may be cloudy, smelly or dark. There may be pain in the lower abdomen. A bladder infection occurs when bacteria from the vaginal area enter the bladder opening (urethra). This can occur from sexual intercourse, wearing tight clothing, dehydration and other factors. Home Care: Drink lots of fluids (at least 6-8 glasses a day, unless you must restrict fluids for other medical reasons). This will force the medicine into your urinary system and flush the bacteria out of your body. Avoid sexual intercourse until your symptoms are gone. Avoid caffeine, alcohol and spicy foods. These can irritate the bladder. A bladder infection is treated with antibiotics. You may also be given Pyridium (generic = phenazopyridine) to reduce the burning sensation. This medicine will cause your urine to become a bright orange color. The orange urine may stain clothing. You may wear a pad or panty-liner to protect clothing. Preventing Future Infections: Always wipe from front to back after a bowel movement. Keep the genital area clean and dry. Drink plenty of fluids each day to avoid dehydration. Both sexual partners should wash before intercourse. Urinate right after intercourse to flush out the bladder. Wear cotton underwear and cotton-lined panty hose; avoid tight-fitting pants. If you are on control pills and are having frequent bladder infections, discuss with your doctor. Follow Up: Return to this facility or see your doctor if ALL symptoms are not gone after three days of treatment. Get Prompt Medical Attention if any of the following occur: Fever of 100.4F (38C) or higher, or as directed by your healthcare provider No improvement by the third day of treatment Increasing back or abdominal pain Repeated vomiting; unable to keep medicine down Weakness, dizziness or fainting Vaginal discharge Pain, redness or swelling in the labia (outer vaginal area) Nitrofurantoin, Nitrofurantoin, Macrocrystalline Oral capsule What is this medicine? NITROFURANTOIN (jacqui angeli KEBEDE toyn) is an antibiotic. It is used to treat urinary tract infections. How should I use this medicine? Take this medicine by mouth with a glass of water. Follow the directions on the prescription label. Take this medicine with food or milk. Take your doses at regular intervals. Do not take your medicine more often than directed. Do not stop taking except on your doctor's advice. Talk to your audio/video engineer regarding the use of this medicine in children. While this drug may be prescribed for selected conditions, precautions do apply. What side effects may I notice from receiving this medicine? Side effects that you should report to your doctor or health healthcare representative as soon as possible: allergic reactions like skin rash or hives, swelling of the face, lips, or tongue chest pain cough difficulty breathing dizziness, drowsiness fever or infection joint aches or pains pale or blue-tinted skin redness, blistering, peeling or loosening of the skin, including inside the mouth tingling, burning, pain, or numbness in hands or feet unusual bleeding or bruising unusually weak or tired yellowing of eyes or skin Side effects that usually do not require medical attention (report to your doctor or health healthcare representative if they continue or are bothersome): dark urine diarrhea headache loss of appetite nausea or vomiting temporary hair loss What may interact with this medicine? antacids containing magnesium trisilicate probenecid quinolone antibiotics like ciprofloxacin, lomefloxacin, norfloxacin and ofloxacin sulfinpyrazone What if I miss a dose? If you miss a dose, take it as soon as you can. If it is almost time for your next dose, take only that dose. Do not take double or extra doses. Where should I keep my medicine? Keep out of the reach of children. Store at room temperature between 15 and 30 degrees C (59 and 86 degrees F). Protect from light. Throw away any unused medicine after the expiration date. What should I tell my health care provider before I take this medicine? They need to know if you have any of these conditions: anemia diabetes [id number] dehydrogenase deficiency kidney disease liver disease lung disease other chronic illness an unusual or allergic reaction to nitrofurantoin, other antibiotics, other medicines, foods, dyes or preservatives or trying to get breast-feeding What should I watch for while using this medicine? Tell your doctor or health healthcare representative if your symptoms do not improve or if you get new symptoms. Drink several glasses of water a day. If you are taking this medicine for a long time, visit your doctor for regular checks on your progress. If you are diabetic, you may get a false positive result for sugar in your urine with certain brands of urine tests. Check with your doctor. You have been given the following additional information: Chest Pain, Noncardiac Bladder Infection, Female (Adult) Nitrofurantoin, Nitrofurantoin, Macrocrystalline Oral capsule (Electronically signed by Jono Patel Dr. 07/02/2016 21:42)
--- NOTE | 2016-07-02 21:42 | ED MED RECONCILIATION SUMMARY ---
Patient: ENRIKE PRADO Medication Reconciliation Report [facility] VisitID: [id number] [address] [place] [address] 30y, F Registration Date/Time: 07/02/2016 Weight: 68.0 kg Height/Length: 65 in. BMI: 25.0 ALLERGIES: No Known Drug Allergy The patient's Home Medications are listed below: STOP TAKING THE FOLLOWING MEDICATIONS: Cipro Oral (500 mg) 1 tablet, 2x a day The source(s) of the original Home Medication information: Not obtained. The following Medications were given to the patient in the Emergency Department: None. The following Medications were prescribed to the patient: Macrobid 100 mg: take 1 capsule orally every 12 hours for 7 days. Substitution is permissible. -- Jono Patel Dr.
== END 2016-07-02 11:27 | disposition home or self-care (01) ==
LOC: ED SRH 08:53
DX: R07.89 Other chest pain (principal); N30.90 Cystitis, unspecified without hematuria
CPT/HCPCS: 90004; 90100; 90469; 90616; 92610; 92720; 93070; 95059

== ENCOUNTER 2016-08-14 19:00 | Emergency (ER) | payer OTHER ==
--- NOTE | 2016-08-14 21:48 | ED CLINICAL REPORT ---
Clinical Report - Physicians/Mid Levels [facility] [address] [place] [address] 08/14/2016 19:00 Patient: ENRIKE PRADO Time Seen: 19:14; initial patient contact, initial documentation, patient care assumed. Arrived- By private vehicle. Historian- patient. HISTORY OF PRESENT ILLNESS Chief Complaint: PELVIC PAIN. This started today and now gone. The symptoms are described as mild. The patient has had mild, intermittent abdominal pain (describes it as 'tightening'). The pain is described as generalized. No nausea, vomiting, diarrhea or radiation of abdominal pain to the back. She has had pelvic pain. No vaginal pain, low back pain, flank pain, irregular periods or abnormal bleeding. No vaginal discharge, pain with urination or hematuria. The patient has had urinary frequency. She has had urgency of urination. Sexually active. Does not use control measures. Currently . In 1st trimester. Recently diagnosed. confirmed with home test and urine test. Has had care in clinic. G 4. P 3. Receiving care. Similar symptoms previously: None. Recent medical care: The patient was seen recently in a clinic. ( went to clinic x2 days ago, because she had pos home hcg test). REVIEW OF SYSTEMS The patient has had nausea. No vomiting, diarrhea, fever, anorexia or difficulty breathing. No chest pain. All systems otherwise negative, except as recorded above. PAST HISTORY See nurses notes. ( PROBLEMS: Atypical Chest Pain. Lumbar Strain. Dizziness. Headache. UTI - Urinary Tract Infection. --19:18 Ely Hernandez, R.N. ADDITIONAL SURGERIES: . --19:18 Ely Hernandez, R.N.). SOCIAL HISTORY Never smoker. No alcohol use or drug use. No recent travel. Is a local resident. FAMILY HISTORY Negative. ADDITIONAL NOTES The nursing notes have been reviewed with agreement regarding the chief complaint, HPI, ROS, PMH and patient medications and allergies. PHYSICAL EXAM Appearance: Alert. Oriented X3. No acute distress. HEENT: Normal external inspection. ENT: Pharynx normal. Neck: Neck supple. CVS: Heart sounds normal. Respiratory: No respiratory distress. Breath sounds normal. Chest nontender. Abdomen: Soft and nontender. Bowel sounds normal. No organomegaly. No mass. Back: Normal external inspection. : External inspection normal. Speculum exam normal. Bimanual exam normal. Skin: Skin warm and dry. Normal skin color. No rash. Normal skin turgor. Extremities: Extremities nontender. No lower extremity edema. Neuro: Oriented X 3. Mood/affect normal. No motor deficit. No sensory deficit. LABS, X-RAYS, AND EKG Pelvic Sonogram: . live iup, 8w1d, hr 150's verbal report from Leo. Interpretation time: 21:28. Laboratory Tests: UA-Culture if indicated: (CLARENCE: 08/14/2016 19:30) ( [facility] 08/14/2016 20:22) Final results Test Result Flag Units (Reference) URINE COLOR YELLOW URINE APPEARANCE CLEAR URINE GLUCOSE NEGATIVE (NEGATIVE) URINE BILIRUBIN NEGATIVE (NEGATIVE) URINE KETONE NEGATIVE (NEGATIVE) URINE SPECIFIC GRAVITY <= 1.005 L (1.010-1.030) URINE PH 6.0 (5.0-8.0) URINE PROTEIN NEGATIVE (NEGATIVE) URINE UROBILINOGEN 0.2 EU/dL (0.2-1.0) URINE NITRITE NEGATIVE (NEGATIVE) URINE BLOOD NEGATIVE (NEGATIVE) URINE LEUK ESTERASE NEGATIVE (NEGATIVE) URINE RBC NONE SEEN rbc/hpf (0-1) URINE WBC 0-1 wbc/hpf (0-1) URINE EPITHELIAL CELLS 1-3 EPI/hpf (0-5) URINE BACTERIA TRACE (<1+) (NONE SEEN) URINE COMMENT CULT NOT INDICATED URINE CULTURES ARE SET-UP BASED ON THE FOLLOWING CRITERIA:POSITIVE NITRITEPOSITIVE LEUKOCYTE ESTERASEGREATER THAN 10 WHITE BLOOD CELLSMODERATE (2+) OR GREATER BACTERIA Urine: (CLARENCE: 08/14/2016 19:30) ( [facility] 08/14/2016 19:41) Final results Test Result Flag Units (Reference) URINE POSITIVE CBC w Diff: (CLARENCE: 08/14/2016 19:30) [facility] 19:55[facility] Final results Test Result Flag Units (Reference) WHITE BLOOD COUNT 7.4 K/uL (4.5-11.5) RED BLOOD COUNT 4.24 M/uL (4.00-5.20) HEMOGLOBIN 11.8 L gm/dL (12.0-16.0) HEMATOCRIT 35.2 L % (36.0-46.0) MEAN CELL VOLUME 83 fL (80-100) MEAN CORPUSCULAR HGB 28 pg (26-34) MEAN CORPUSCULAR HGB CONC 34 g/dL (31-37) RED CELL DISTRIBUTION WIDTH 13.1 % (11.6-14.8) PLATELET COUNT 256 K/uL (150-400) NEUTROPHIL % 67.8 % (50-75) LYMPH % 22.6 L % (25-40) MONO % 7.4 % (3-14) EOSINOPHIL % 1.7 % (0-4) BASOPHIL % 0.5 % (0-2) Serum Quantitative: (CLARENCE: 08/14/2016 19:30) ( [facility] 08/14/2016 20:43) Final results Test Result Flag Units (Reference) BETA HCG, QUANTITATIVE 74229 mIU/mL REFERENCE RANGE:Adult Males: <2 mIU/mLNon- Females: <6 mIU/mL Females:Approximate Approximate hCGGestational Age Range (mIU/mL) 0-1 week 0-501-2 weeks 40-3002-3 weeks 100-69454-3 weeks 500-50533-7 months 5,000-200,0002-3 months 10,000-100,0002nd trimester 3,000-50,0003rd trimester 1,000-50,000 CMP: (CLARENCE: 08/14/2016 19:30) ( [facility] 20:15) Final results Test Result Flag Units (Reference) GLUCOSE 99 mg/dL (70-110) BUN 10 mg/dL (7-18) CREATININE 0.6 mg/dL (0.6-1.3) Estimated GFR >60 mL/min Estimated GFR- >60 mL/min Note: Persistent reduction over 3 months in eGFR<60 mL/min/1.73 m2 defines CKD. Patients with eGFR values>=60 mL/min/1.73 m2 may also have CKD if evidence ofpersistent proteinuria. Additional information may be foundat www.kidney.org. SODIUM 142 mmol/L (136-145) POTASSIUM 3.8 mmol/L (3.5-5.1) CHLORIDE 106 mmol/L (98-107) CARBON DIOXIDE 26 mmol/L (21-32) CALCIUM 8.6 mg/dL (8.5-10.1) TOTAL PROTEIN 7.0 g/dL (6.4-8.2) ALBUMIN 3.6 g/dL (3.3-5.0) BILIRUBIN, TOTAL 0.8 mg/dL (0.0-1.0) ALKALINE PHOSPHATASE 58 U/L (46-116) AST (SGOT) 10 L U/L (15-37) ALT (SGPT) 15 U/L (12-78) LIPASE 111 U/L (73-393) AMYLASE 41 U/L (25-115) . PROGRESS AND PROCEDURES Course of Care: 21:17 17. US at bedside. Patient counseled in person regarding the patient's stable condition, test results and diagnosis. 21:28. Differential Diagnosis: I considered gastritis, peptic ulcer disease, gastroesophageal reflux disease, acute appendicitis, mesenteric lymphadenitis, colon cancer, biliary colic, cholecystitis, cholelithiasis, hepatitis, pancreatitis, urinary tract infection, ureterolithiasis, ovarian cyst, ovarian torsion, , ectopic and viral syndrome as a possible cause of abdominal pain in this patient. This is a partial list of diagnoses considered. Above considerations are based on history, physical exam and laboratory data. Differential diagnosis was discussed with patient. Disposition: Discharged home in good and unchanged condition (21:48). Condition: good and stable. CLINICAL IMPRESSION Acute abdominal pain of undetermined cause. First trimester discomforts of . INSTRUCTIONS Warnings: GENERAL WARNINGS: Return or contact your physician immediately if your condition worsens or changes unexpectedly, if not improving as expected, or if other problems arise. Specifically return if problem worsens. Follow-up: Follow up with your doctor in about two days even if well. Call for an appointment. Summary of care provided to patient. Understanding of the discharge instructions verbalized by patient. (Electronically signed by Zee Richardson A.R.N.P. 08/14/2016 22:24)
--- NOTE | 2016-08-14 21:48 | ED ORDER SUMMARY ---
..... Patient: ENRIKE PRADO OrderSheet [facility] VisitID: [id number] [address] [place] [address] 31y, F Registration Date/Time: 08/14/2016 ORDER SHEET Weight: 68.0 kg (stated) Allergies: No Known Drug Allergy GENERAL ORDERS: Urine Urgent (19:28 08/14/2016 HBivens A.R.N.P.) (Ack 19:30 AMcQuoid ER Tech1) (22:21 SRoberts R.N.) UA-Culture if indicated Urgent (19:28 08/14/2016 HBivens A.R.N.P.) (Ack 19:30 AMcQuoid ER Tech1) (22:21 SRoberts R.N.) CBC w Diff Urgent (19:37 08/14/2016 HBivens A.R.N.P.) (Ack 19:38 AMcQuoid ER Tech1) (Cancelled: Patient Pjmnmmvckwp09:21 SRoberts R.N.) CMP Urgent (19:37 08/14/2016 HBivens A.R.N.P.) (Ack 19:38 AMcQuoid ER Tech1) (Cancelled: Patient Fppmaocztgu51:21 SRoberts R.N.) Amylase Urgent (19:37 08/14/2016 HBivens A.R.N.P.) (Ack 19:38 AMcQuoid ER Tech1) (Cancelled: Patient Xohablimoed77:21 SRoberts R.N.) Lipase Urgent (19:37 08/14/2016 HBivens A.R.N.P.) (Ack 19:38 AMcQuoid ER Tech1) (Cancelled: Patient Ebfdhlfrlyy82:21 SRoberts R.N.) US OB 1st Trimester w Transvag (12 weeks) Urgent (19:43 08/14/2016 HBivens A.R.N.P.) (Ack 19:47 AMcQuoid ER Tech1) (22:21 SRoberts R.N.) Serum Quantitative Urgent (19:43 08/14/2016 HBivens A.R.N.P.) (Ack 19:45 AMcQuoid ER Tech1) (Cancelled: Patient Qqylyafmmaq20:21 Duke Coleman) MEDICATION ORDERS: IV FLUIDS: ORDER SHEET NOTES: [Electronically signed by Ely Hernandez R.N. (22:22 08/14/2016)] [Electronically signed by Zee Richardson (22:24 08/14/2016)] [Electronically locked/signed by Ely Hernandez R.N. (22:22 08/14/2016)]
--- NOTE | 2016-08-14 21:48 | ED ORDER SUMMARY ---
..... Patient: ENRIKE PRADO OrderSheet [facility] VisitID: [id number] [address] [place] [address] 31y, F Registration Date/Time: 08/14/2016 ORDER SHEET Weight: 68.0 kg (stated) Allergies: No Known Drug Allergy GENERAL ORDERS: Urine Urgent (19:28 08/14/2016 HBivens A.R.N.P.) (Ack 19:30 AMcQuoid ER Tech1) (22:21 SRoberts R.N.) UA-Culture if indicated Urgent (19:28 08/14/2016 HBivens A.R.N.P.) (Ack 19:30 AMcQuoid ER Tech1) (22:21 SRoberts R.N.) CBC w Diff Urgent (19:37 08/14/2016 HBivens A.R.N.P.) (Ack 19:38 AMcQuoid ER Tech1) (Cancelled: Patient Roychvgcumy63:21 SRoberts R.N.) CMP Urgent (19:37 08/14/2016 HBivens A.R.N.P.) (Ack 19:38 AMcQuoid ER Tech1) (Cancelled: Patient Bhkhjwtydjb07:21 SRoberts R.N.) Amylase Urgent (19:37 08/14/2016 HBivens A.R.N.P.) (Ack 19:38 AMcQuoid ER Tech1) (Cancelled: Patient Rtztynvwupf35:21 SRoberts R.N.) Lipase Urgent (19:37 08/14/2016 HBivens A.R.N.P.) (Ack 19:38 AMcQuoid ER Tech1) (Cancelled: Patient Ekivyztihmn48:21 SRoberts R.N.) US OB 1st Trimester w Transvag (12 weeks) Urgent (19:43 08/14/2016 HBivens A.R.N.P.) (Ack 19:47 AMcQuoid ER Tech1) (22:21 SRoberts R.N.) Serum Quantitative Urgent (19:43 08/14/2016 HBivens A.R.N.P.) (Ack 19:45 AMcQuoid ER Tech1) (Cancelled: Patient Vnxsorvcfqg11:21 Duke Coleman) MEDICATION ORDERS: IV FLUIDS: ORDER SHEET NOTES: [Electronically signed by Ely Hernandez R.N. (22:22 08/14/2016)] [Electronically signed by Zee Richardson (22:24 08/14/2016)] [Electronically locked/signed by Ely Hernandez R.N. (22:22 08/14/2016)]
--- NOTE | 2016-08-14 21:48 | ED CLINICAL REPORT ---
Clinical Report - Physicians/Mid Levels [facility] [address] [place] [address] 08/14/2016 19:00 Patient: ENRIKE PRADO Time Seen: 19:14; initial patient contact, initial documentation, patient care assumed. Arrived- By private vehicle. Historian- patient. HISTORY OF PRESENT ILLNESS Chief Complaint: PELVIC PAIN. This started today and now gone. The symptoms are described as mild. The patient has had mild, intermittent abdominal pain (describes it as 'tightening'). The pain is described as generalized. No nausea, vomiting, diarrhea or radiation of abdominal pain to the back. She has had pelvic pain. No vaginal pain, low back pain, flank pain, irregular periods or abnormal bleeding. No vaginal discharge, pain with urination or hematuria. The patient has had urinary frequency. She has had urgency of urination. Sexually active. Does not use control measures. Currently . In 1st trimester. Recently diagnosed. confirmed with home test and urine test. Has had care in clinic. G 4. P 3. Receiving care. Similar symptoms previously: None. Recent medical care: The patient was seen recently in a clinic. ( went to clinic x2 days ago, because she had pos home hcg test). REVIEW OF SYSTEMS The patient has had nausea. No vomiting, diarrhea, fever, anorexia or difficulty breathing. No chest pain. All systems otherwise negative, except as recorded above. PAST HISTORY See nurses notes. ( PROBLEMS: Atypical Chest Pain. Lumbar Strain. Dizziness. Headache. UTI - Urinary Tract Infection. --19:18 Ely Hernandez, R.N. ADDITIONAL SURGERIES: . --19:18 Ely Hernandez, R.N.). SOCIAL HISTORY Never smoker. No alcohol use or drug use. No recent travel. Is a local resident. FAMILY HISTORY Negative. ADDITIONAL NOTES The nursing notes have been reviewed with agreement regarding the chief complaint, HPI, ROS, PMH and patient medications and allergies. PHYSICAL EXAM Appearance: Alert. Oriented X3. No acute distress. HEENT: Normal external inspection. ENT: Pharynx normal. Neck: Neck supple. CVS: Heart sounds normal. Respiratory: No respiratory distress. Breath sounds normal. Chest nontender. Abdomen: Soft and nontender. Bowel sounds normal. No organomegaly. No mass. Back: Normal external inspection. : External inspection normal. Speculum exam normal. Bimanual exam normal. Skin: Skin warm and dry. Normal skin color. No rash. Normal skin turgor. Extremities: Extremities nontender. No lower extremity edema. Neuro: Oriented X 3. Mood/affect normal. No motor deficit. No sensory deficit. LABS, X-RAYS, AND EKG Pelvic Sonogram: . live iup, 8w1d, hr 150's verbal report from [facility]. Interpretation time: 21:28. Laboratory Tests: UA-Culture if indicated: (CLARENCE: 08/14/2016 19:30) ( [facility] 08/14/2016 20:22) Final results Test Result Flag Units (Reference) URINE COLOR YELLOW URINE APPEARANCE CLEAR URINE GLUCOSE NEGATIVE (NEGATIVE) URINE BILIRUBIN NEGATIVE (NEGATIVE) URINE KETONE NEGATIVE (NEGATIVE) URINE SPECIFIC GRAVITY <= 1.005 L (1.010-1.030) URINE PH 6.0 (5.0-8.0) URINE PROTEIN NEGATIVE (NEGATIVE) URINE UROBILINOGEN 0.2 EU/dL (0.2-1.0) URINE NITRITE NEGATIVE (NEGATIVE) URINE BLOOD NEGATIVE (NEGATIVE) URINE LEUK ESTERASE NEGATIVE (NEGATIVE) URINE RBC NONE SEEN rbc/hpf (0-1) URINE WBC 0-1 wbc/hpf (0-1) URINE EPITHELIAL CELLS 1-3 EPI/hpf (0-5) URINE BACTERIA TRACE (<1+) (NONE SEEN) URINE COMMENT CULT NOT INDICATED URINE CULTURES ARE SET-UP BASED ON THE FOLLOWING CRITERIA:POSITIVE NITRITEPOSITIVE LEUKOCYTE ESTERASEGREATER THAN 10 WHITE BLOOD CELLSMODERATE (2+) OR GREATER BACTERIA Urine: (CLARENCE: 08/14/2016 19:30) ( [facility] 08/14/2016 19:41) Final results Test Result Flag Units (Reference) URINE POSITIVE CBC w Diff: (CLARENCE: 08/14/2016 19:30) ( [facility] 08/14/2016 19:55) Final results Test Result Flag Units (Reference) WHITE BLOOD COUNT 7.4 K/uL (4.5-11.5) RED BLOOD COUNT 4.24 M/uL (4.00-5.20) HEMOGLOBIN 11.8 L gm/dL (12.0-16.0) HEMATOCRIT 35.2 L % (36.0-46.0) MEAN CELL VOLUME 83 fL (80-100) MEAN CORPUSCULAR HGB 28 pg (26-34) MEAN CORPUSCULAR HGB CONC 34 g/dL (31-37) RED CELL DISTRIBUTION WIDTH 13.1 % (11.6-14.8) PLATELET COUNT 256 K/uL (150-400) NEUTROPHIL % 67.8 % (50-75) LYMPH % 22.6 L % (25-40) MONO % 7.4 % (3-14) EOSINOPHIL % 1.7 % (0-4) BASOPHIL % 0.5 % (0-2) Serum Quantitative: (CLARENCE: 08/14/2016 19:30) ( [facility] 08/14/2016 20:43) Final results Test Result Flag Units (Reference) BETA HCG, QUANTITATIVE 35940 mIU/mL REFERENCE RANGE:Adult Males: <2 mIU/mLNon- Females: <6 mIU/mL Females:Approximate Approximate hCGGestational Age Range (mIU/mL) 0-1 week 0-501-2 weeks 40-3002-3 weeks 100-01380-7 weeks 500-52479-3 months 5,000-200,0002-3 months 10,000-100,0002nd trimester 3,000-50,0003rd trimester 1,000-50,000 CMP: (CLARENCE: 08/14/2016 19:30) ( [facility] 08/14/2016 20:15) Final results Test Result Flag Units (Reference) GLUCOSE 99 mg/dL (70-110) BUN 10 mg/dL (7-18) CREATININE 0.6 mg/dL (0.6-1.3) Estimated GFR >60 mL/min Estimated GFR- >60 mL/min Note: Persistent reduction over 3 months in eGFR<60 mL/min/1.73 m2 defines CKD. Patients with eGFR values>=60 mL/min/1.73 m2 may also have CKD if evidence ofpersistent proteinuria. Additional information may be foundat www.kidney.org. SODIUM 142 mmol/L (136-145) POTASSIUM 3.8 mmol/L (3.5-5.1) CHLORIDE 106 mmol/L (98-107) CARBON DIOXIDE 26 mmol/L (21-32) CALCIUM 8.6 mg/dL (8.5-10.1) TOTAL PROTEIN 7.0 g/dL (6.4-8.2) ALBUMIN 3.6 g/dL (3.3-5.0) BILIRUBIN, TOTAL 0.8 mg/dL (0.0-1.0) ALKALINE PHOSPHATASE 58 U/L (46-116) AST (SGOT) 10 L U/L (15-37) ALT (SGPT) 15 U/L (12-78) LIPASE 111 U/L (73-393) AMYLASE 41 U/L (25-115) . PROGRESS AND PROCEDURES Course of Care: 21:17 17. US at bedside. Patient counseled in person regarding the patient's stable condition, test results and diagnosis. 21:28. Differential Diagnosis: I considered gastritis, peptic ulcer disease, gastroesophageal reflux disease, acute appendicitis, mesenteric lymphadenitis, colon cancer, biliary colic, cholecystitis, cholelithiasis, hepatitis, pancreatitis, urinary tract infection, ureterolithiasis, ovarian cyst, ovarian torsion, , ectopic and viral syndrome as a possible cause of abdominal pain in this patient. This is a partial list of diagnoses considered. Above considerations are based on history, physical exam and laboratory data. Differential diagnosis was discussed with patient. Disposition: Discharged home in good and unchanged condition (21:48). Condition: good and stable. CLINICAL IMPRESSION Acute abdominal pain of undetermined cause. First trimester discomforts of . INSTRUCTIONS Warnings: GENERAL WARNINGS: Return or contact your physician immediately if your condition worsens or changes unexpectedly, if not improving as expected, or if other problems arise. Specifically return if problem worsens. Follow-up: Follow up with your doctor in about two days even if well. Call for an appointment. Summary of care provided to patient. Understanding of the discharge instructions verbalized by patient. (Electronically signed by Zee Richardson A.R.N.P. 08/14/2016 22:24)
--- NOTE | 2016-08-14 21:48 | ED NURSING NOTES ---
Clinical Report - Nurses [facility] [address] [place] [address] 08/14/2016 19:00 Patient: ENRIKE PRADO TRIAGE Triage time 19:14. Acuity: LEVEL 3. Chief Complaint: ABDOMINAL PAIN and NAUSEA and URINARY FREQUENCY and URGENCY (pain on both sides, "I think I was exposed to black mold in my car. Happened when loaned car to friend" "Seen at [facility] 2 days ago, preg test said 12 weeks."). Alert. No acute distress. --19:27 Ely Hernandez R.N. 19:13 08/14/16. BP: 119/67. HR: 75. RR: 16. O2 saturation: 99%. Temp: 98.7 F. Pain level now: 06/17. --19:27 Ely Hernandez R.N. 19:13 08/14/16. BP: 119/67. HR: 75. RR: 16. O2 saturation: 99%. Temp: 98.7 F. Pain level now: 06/17. --19:27 Ely Hernandez R.N. Weight: 68 kg stated. Height/Length: 65 inches Per Patient. BMI: 25. --19:23 Ely Hernandez R.N. Medications Vits. --19:18 Ely Hernandez R.N. Medication/allergy information source: the patient. --19:27 Ely Hernandez R.N. Allergies No Known Drug Allergy. --19:18 Ely Hernandez R.N. History Arrived by private vehicle. Historian: patient. This is a new problem. She has had nausea and abdominal pain. The pain is described as located in the RLQ, LLQ and lower abdomen and associated with nausea. No vomiting, diarrhea or constipation. 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 PAST MEDICAL HX: Immunizations: status is unknown. Currently . confirmed with home test, urine test and serum test. Has had care in clinic. G 4. P 3. Ab 0. SOCIAL HX: Never smoker. No alcohol use or drug use. FALL RISK ASSESSMENT: Fall risk assessment completed. No fall risk identified. NUTRITIONAL RISK ASSESSMENT: The nutritional risk assessment revealed no deficiencies. FUNCTIONAL ASSESSMENT: Functional assessment: no impairments noted. LEARNING NEEDS ASSESSMENT: The learning needs assessment revealed no barriers. SKIN INTEGRITY ASSESSMENT: Skin integrity risk assessment completed. No skin integrity risk identified. -- Ely Hernandez R.N. PROBLEMS: Atypical Chest Pain. Lumbar Strain. Dizziness. Headache. UTI - Urinary Tract Infection. --19:18 Ely Hernandez R.N. ADDITIONAL SURGERIES: . --19:18 Ely Hernandez R.N. Interventions ID band on patient. To room. --: Ely Hernnadez R.N. PHYSICAL ASSESSMENT Ambulatory to room. Patient gowned. GENERAL / NEURO / PSYCH: Alert. Oriented X 4. Appears in no acute distress. HEENT: Mucous membranes are pink. RESPIRATORY: Respirations not labored. CVS: Capillary refill less than 2 seconds. GI / : Abdominal tenderness in the lower abdomen. SKIN: Skin is warm and dry. --: Ely Hernandez R.N. NURSING PROGRESS NOTES Patient gowned. Head of bed elevated. Two patient identifiers checked. Call light placed in reach. Side rails up x 2. Bed placed in lowest position. Brakes of bed on. Patient ready for evaluation. --: Ely Hernandez R.N. 19:40. Patient ID band checked for patient name and birthdate: patient confirmed. Instructions provided to collect clean catch urine and patient verbalized understanding. Clean catch urine collected with return of yellow-colored clear urine; sample sent to lab for urinalysis, culture and HCG. Specimen labeled in the presence of the patient. --20: Ely Hernandez R.N. 19:45. PELVIC EXAM: Pelvic exam performed by SENIOR QA ANALYST. Assisted by one nurse. Preparation: pelvic tray; patient placed in lithotomy position. Procedure: exam. Status post-procedure: she was stable. Total time of assist / procedure: 15 minutes. --20:04 Ely Hernandez R.N. Patient informed about reason for wait and about plan of care (waiting for [employer] tech to do US exam). --21:03 Molly Rodrigues R.N. ( pt complains of being cold, temp taken (98.4), warm blankets placed on pt.). --21:04 Molly Rodrigues R.N. ( US in the room). --21:05 Ely Hernandez R.N. DISPOSITION / DISCHARGE 22:00. ( Patient left w/o papers.). --22:19 Ely Hernandez R.N. 22:08 08/14/16. BP: 109/63. HR: 69. RR: 16. O2 saturation: 99% on room air. Temp: 98 F. Pain level now: 06/17. --22:19 Ely Hernandez R.N. Locked/Released at 08/14/2016 22:22 by Ely Hernandez R.N.
--- NOTE | 2016-08-14 21:48 | ED NURSING NOTES ---
Clinical Report - Nurses [facility] [address] [place] [address] 08/14/2016 19:00 Patient: ENRIKE PRADO TRIAGE Triage time 19:14. Acuity: LEVEL 3. Chief Complaint: ABDOMINAL PAIN and NAUSEA and URINARY FREQUENCY and URGENCY (pain on both sides, "I think I was exposed to black mold in my car. Happened when loaned car to friend" "Seen at [facility] 2 days ago, preg test said 12 weeks."). Alert. No acute distress. --19:27 Ely Hernandez R.N. 19:13 08/14/16. BP: 119/67. HR: 75. RR: 16. O2 saturation: 99%. Temp: 98.7 F. Pain level now: 06/17. --19:27 Ely Hernandez R.N. 19:13 08/14/16. BP: 119/67. HR: 75. RR: 16. O2 saturation: 99%. Temp: 98.7 F. Pain level now: 06/17. --19:27 Ely Hernandez R.N. Weight: 68 kg stated. Height/Length: 65 inches Per Patient. BMI: 25. --19:23 Ely Hernandez R.N. Medications Vits. --19:18 Ely Hernandez R.N. Medication/allergy information source: the patient. --19:27 Ely Hernandez R.N. Allergies No Known Drug Allergy. --19:18 Ely Hernandez R.N. History Arrived by private vehicle. Historian: patient. This is a new problem. She has had nausea and abdominal pain. The pain is described as located in the RLQ, LLQ and lower abdomen and associated with nausea. No vomiting, diarrhea or constipation. 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 PAST MEDICAL HX: Immunizations: status is unknown. Currently . confirmed with home test, urine test and serum test. Has had care in clinic. G 4. P 3. Ab 0. SOCIAL HX: Never smoker. No alcohol use or drug use. FALL RISK ASSESSMENT: Fall risk assessment completed. No fall risk identified. NUTRITIONAL RISK ASSESSMENT: The nutritional risk assessment revealed no deficiencies. FUNCTIONAL ASSESSMENT: Functional assessment: no impairments noted. LEARNING NEEDS ASSESSMENT: The learning needs assessment revealed no barriers. SKIN INTEGRITY ASSESSMENT: Skin integrity risk assessment completed. No skin integrity risk identified. -- Ely Hernandez R.N. PROBLEMS: Atypical Chest Pain. Lumbar Strain. Dizziness. Headache. UTI - Urinary Tract Infection. --19:18 Ely Hernandez R.N. ADDITIONAL SURGERIES: . --19:18 Ely Hernandez R.N. Interventions ID band on patient. To room. --: Ely Hernandez R.N. PHYSICAL ASSESSMENT Ambulatory to room. Patient gowned. GENERAL / NEURO / PSYCH: Alert. Oriented X 4. Appears in no acute distress. HEENT: Mucous membranes are pink. RESPIRATORY: Respirations not labored. CVS: Capillary refill less than 2 seconds. GI / : Abdominal tenderness in the lower abdomen. SKIN: Skin is warm and dry. --: Ely Hernandez R.N. NURSING PROGRESS NOTES Patient gowned. Head of bed elevated. Two patient identifiers checked. Call light placed in reach. Side rails up x 2. Bed placed in lowest position. Brakes of bed on. Patient ready for evaluation. --: Ely Hernandez R.N. 19:40. Patient ID band checked for patient name and birthdate: patient confirmed. Instructions provided to collect clean catch urine and patient verbalized understanding. Clean catch urine collected with return of yellow-colored clear urine; sample sent to lab for urinalysis, culture and HCG. Specimen labeled in the presence of the patient. --20: Ely Hernandez R.N. 19:45. PELVIC EXAM: Pelvic exam performed by POLITICAL CONSULTANT. Assisted by one nurse. Preparation: pelvic tray; patient placed in lithotomy position. Procedure: exam. Status post-procedure: she was stable. Total time of assist / procedure: 15 minutes. --20:04 Ely Hernandez R.N. Patient informed about reason for wait and about plan of care (waiting for [employer] tech to do US exam). --21:03 Molly Rodrigues R.N. ( pt complains of being cold, temp taken (98.4), warm blankets placed on pt.). --21:04 Molly Rodrigues R.N. ( US in the room). --21:05 Ely Hernandez R.N. DISPOSITION / DISCHARGE 22:00. ( Patient left w/o papers.). --22:19 Ely Hernandez R.N. 22:08 08/14/16. BP: 109/63. HR: 69. RR: 16. O2 saturation: 99% on room air. Temp: 98 F. Pain level now: 06/17. --22:19 Ely Hernandez R.N. Locked/Released at 08/14/2016 22:22 by Ely Hernandez R.N.
--- NOTE | 2016-08-14 21:59 | DIAGNOSTIC IMAGING REPORT ---
PROCEDURE: US OB 1ST TRIMESTER W/TRANSVAG INDICATION: PAIN TECHNIQUE: Ortega scale, color, and spectral Doppler transabdominal and endovaginal sonographic images of the first trimester gravid uterus were obtained. COMPARISON: None. FINDINGS: TRANSABDOMINAL SCANS: The gravid uterus is anteverted in position and contains a fundal gestational sac with a moderate decidual response. No perigestational hemorrhage. The cervix is closed. parts are identified. The average gestational sac diameter is about 22 mm. Maternal right ovary appears normal with a corpus luteum cyst visualized on the right ovary. Left ovary was not well seen. No free pelvic fluid. TRANSVAGINAL SCANS: A pole is present with an average crown-rump length of 17.4 mm which corresponds to a 7-hsmc-9-day gestation. Yolk sac was identified. No perigestational hemorrhage. There is detectable cardiac activity at a rate of 152 beats per minute. Trace fluid in the endocervix which appears otherwise normal. Maternal right ovary measures 3.8 cm in length and contains a dominant follicle. Normal vascular flow. The left ovary measures 3.1 cm in length and contains multiple tiny peripheral follicles and normal vascular flow. No suspicious adnexal mass. IMPRESSION: 1. Single living intrauterine with gestational age of 8 weeks 1 day and estimated due date of 03/25/2017. 2. Closed cervix and no perigestational hemorrhage.
--- NOTE | 2016-08-14 22:24 | ED MED RECONCILIATION SUMMARY ---
Patient: ENRIKE PRADO Medication Reconciliation Report [facility] VisitID: [id number] [address] [place] [address] 31y, F Registration Date/Time: 08/14/2016 Weight: 68.0 kg Height/Length: 65 in. BMI: 25.0 ALLERGIES: No Known Drug Allergy The patient's Home Medications are listed below: THE FOLLOWING MEDICATIONS NEED TO BE RECONCILED: Vits The source(s) of the original Home Medication information: patient The following Medications were given to the patient in the Emergency Department: None. The following Medications were prescribed to the patient: None.
--- NOTE | 2016-08-14 22:24 | ED MAR SUMMARY ---
..... Medication Administration Record [facility] [address] [place], [place] [id number] Patient: ENRIKE PRADO Eliza Visit ID: [id number] 31y, F Weight: 68.0 kg Height/Length: 65 in BMI: 25 ALLERGIES: No Known Drug Allergy
--- NOTE | 2016-08-14 22:24 | ED DISCHARGE INSTRUCTIONS ---
Patient: ENRIKE PRADO General Instructions [facility] VisitID: [id number] [address] [place] [address] 31y, F Registration Date/Time: 08/14/2016 Acute abdominal pain of undetermined cause. First trimester discomforts of . INSTRUCTIONS Warnings: GENERAL WARNINGS: Return or contact your physician immediately if your condition worsens or changes unexpectedly, if not improving as expected, or if other problems arise. Specifically return if problem worsens. Follow-up: Follow up with your doctor in about two days even if well. Call for an appointment. Summary of care provided to patient. Understanding of the discharge instructions verbalized by patient. ADDITIONAL INFORMATION Abdominal Pain, Unknown Cause (Female) The exact cause of your abdominal (stomach) pain is not certain. This does not mean that this is something to worry about, or the right tests were not done. Everyone likes to know the exact cause of the problem, but sometimes with abdominal pain, there is no clear-cut cause, and this could be a good thing. The good news is that your symptoms can be treated, and you will feel better. Your condition does not seem serious now; however, sometimes the signs of a serious problem may take more time to appear. For this reason,it is important for you to watch for any new symptoms, problems,or worsening of your condition. Over the next few days, the abdominal pain may come and go, or be continuous. Other common symptoms can include nausea and vomiting. Sometimes it can be difficult to tell if you feel nauseous, you may just feel bad and not associate that feeling with nausea. Constipation, diarrhea, and a fever may go along with the pain. The pain may continue even if treated correctly over the following days. Depending on how things go, sometimes the cause can become clear and may require further or different treatment. Additional evaluations, medications, or tests may be needed. Home care Your health care provider may prescribe medications for pain, symptoms, or an infection. Follow the health care provider's instructions for taking these medications. General care Rest until your next exam. No strenuous activities. Try to find positions that ease discomfort. A small pillow placed on the abdomen may help relieve pain. Something warm on your abdomen (such as a heating pad) may help, but be careful not to burn yourself. Diet Do not force yourself to eat, especially if having cramps, vomiting, or diarrhea. Water is important so you do not get dehydrated. Soup may also be good. Sports drinks may also help, especially if they are not too acidic. Make sure you don't drink sugary drinks as this can make things worse. Take liquids in small amounts. Do not guzzle them. Caffeine sometimes makes the pain and cramping worse. Avoid dairy products if you have vomiting or diarrhea. Don't eat large amounts at a time. Wait a few minutes between bites. Eat a diet low in fiber (called a low-residue diet). Foods allowed include refined breads, white rice, fruit and vegetable juices without pulp, tender meats. These foods will pass more easily through the intestine. Avoid whole-grain foods, whole fruits and vegetables, meats, seeds and nuts, fried or fatty foods, dairy, alcohol and spicy foods until your symptoms go away. Follow-up care Follow up with your health care provider as instructed, or if your pain does not begin to improve in the next 24 hours. When to seek medical care Seek prompt medical care if any of the following occur: Pain gets worse or moves to the right lower abdomen New or worsening vomiting or diarrhea Swelling of the abdomen Unable to pass stool for more than three days Fever of 100.4F (38C) or higher, or as directed by your healthcare provider. Blood in vomit or bowel movements (dark red or black color) Jaundice (yellow color of eyes and skin) Weakness, dizziness Chest, arm, back, neck or jaw pain Unexpected vaginal bleeding or missed period Call 911 Call emergency services if any of the following occur: Trouble breathing Confusion Fainting or loss of consciousness Rapid heart rate Seizure Abdominal Pain,Possible Appendicitis [Repeat Exam, Female] Based on your visit today, the exact cause of your abdominal (stomach) pain is not certain. However, you do have some of the early signs of APPENDICITIS. Early in an appendix infection the symptoms can be similar to a simple "stomach ache" or "stomach flu". Therefore, the diagnosis can be hard to make. Since an appendix infection is a serious condition, it is important to know if this is the cause of your symptoms. WAITING for more time to pass and repeating the exam is the best way to find out whether you have appendicitis. Within the next 12-24 hours the cause of your stomach pain should become clear. It is important for you to watch for any new symptoms or worsening of your condition. (See below). Home Care: Rest until your next exam. No strenuous activities. Eat a diet low in fiber (called a low-residue diet). Foods allowed include refined breads, white rice, fruit and vegetable juices without pulp, tender meats. These foods will pass more easily through the intestine. Avoid whole-grain foods, whole fruits and vegetables, meats, seeds and nuts, fried or fatty foods, dairy, alcohol and spicy foods until your symptoms go away. In some cases, you may be asked not to eat or drink anything until you are re-examined. Return for another exam exactly as directed. Follow Up with your doctor or this facility as directed. Get Prompt Medical Attention if any of the following occur: Pain gets worse or moves to the right lower abdomen New or worsening vomiting or diarrhea Swelling of the abdomen Unable to pass stool for more than three days Fever of 100.4F (38C) or higher, or as directed by your healthcare provider Blood in vomit or bowel movements (dark red or black color) Weakness, dizziness or fainting Unexpected vaginal bleeding Your exam today shows that you are . During , it is normal to develop tender swollen breasts, frequent urination and mild vaginal discharge. During the first three months, nausea is common. Guidelines For A Healthy : To ensure that your baby is born healthy there are certain things that you can do: When you feel tired, you should REST. This is especially true in the later months of . Your body needs more FLUIDS than you may be used to: You should drink 8-10 glasses of juice, milk or water. Eat well-balanced MEALS at regular intervals to supply your body with enough protein. You can expect a total weight gain of about 30 pounds during the . Do not try to diet or lose weight while you are . Because of the extra nutritional needs during , take one VITAMIN daily. Do not take any other MEDICINE during your (prescribed or [id number]) unless your doctor specifically recommends this. Many drugs can have harmful effects on the growing baby. If NAUSEA or VOMITING become a problem, avoid greasy and fried foods. Eat several smaller meals throughout the day rather than three large meals. If you SMOKE, you must stop. The nicotine you breathe in goes right to the baby. Stay away from ALCOHOL, even in moderate amounts. Daily drinking will harm your baby and can cause permanent brain damage. RECREATIONAL DRUGS are harmful, especially cocaine, crack, and heroin. Marijuana should also be avoided. If you were using recreational drugs or prescribed medicine when you found out that you were , talk to your doctor about possible effects on the fetus. Follow Up: Call to arrange for care. This can be provided by your family doctor, an school lunch manager ( specialist) or a primary care clinic. Get Prompt Medical Attention if any of the following occur: Vaginal bleeding Moderate or severe abdominal or back pain Excessive vomiting, unable to keep any fluids down for six hours Burning with urination Headache, dizziness or rapid weight gain You have been given the following additional information: Abdominal Pain, Unknown Cause, (Female) Abdominal Pain, Possible Appendicitis (Female) , New Dx (Electronically signed by Zee Richardson A.R.N.P. 08/14/2016 22:24)
--- NOTE | 2016-08-14 22:24 | ED MAR SUMMARY ---
..... Medication Administration Record [facility] [address] [place], [place] [id number] Patient: ENRIKE PRADO Eliza Visit ID: [id number] 31y, F Weight: 68.0 kg Height/Length: 65 in BMI: 25 ALLERGIES: No Known Drug Allergy
--- NOTE | 2016-08-14 22:24 | ED MED RECONCILIATION SUMMARY ---
Patient: ENRIKE PRADO Medication Reconciliation Report [facility] VisitID: [id number] [address] [place] [place] [address] 31y, F Registration Date/Time: 08/14/2016 Weight: 68.0 kg Height/Length: 65 in. BMI: 25.0 ALLERGIES: No Known Drug Allergy The patient's Home Medications are listed below: THE FOLLOWING MEDICATIONS NEED TO BE RECONCILED: Vits The source(s) of the original Home Medication information: patient The following Medications were given to the patient in the Emergency Department: None. The following Medications were prescribed to the patient: None.
== END 2016-08-14 22:00 | disposition home or self-care (01) ==
LOC: ED SRH 19:00
DX: O26.891 Other specified pregnancy related conditions, first trimester (principal); R10.9 Unspecified abdominal pain; Z3A.12 12 weeks gestation of pregnancy
CPT/HCPCS: 90004; 90074; 90100; 90197; 92235; 92530; 93070; 95059

== ENCOUNTER 2016-08-29 17:01 | Emergency (ER) | payer OTHER ==
--- NOTE | 2016-08-29 18:09 | ED ORDER SUMMARY ---
..... Patient: ENRIKE PRADO OrderSheet [facility] VisitID: [id number] [address] [place] [address] 31y, F Registration Date/Time: 08/29/2016 ORDER SHEET Weight: 68.0 kg (stated) Allergies: No Known Drug Allergy GENERAL ORDERS: Urine Urgent (17:08/29/2016 LAbe R.N. per protocol) (Ack 17:22 KHoerner) UA-Culture if indicated Urgent (17:08/29/2016 LAbe R.N. per protocol) (Ack 17:22 KHoerner) US OB 1st Trimester w Transvag (10 wks) Urgent (17:08/29/2016 HBivens A.R.N.P.) (Ack 17:25 KHoerner) CBC w Diff Urgent (17:08/29/2016 HBivens A.R.N.P.) (Ack 17:25 KHoerner) (17:36 KHoerner) CMP Urgent (17:08/29/2016 HBivens A.R.N.P.) (Ack 17:25 KHoerner) (17:36 KHoerner) Type & Rh Urgent (17:08/29/2016 HBivens A.R.N.P.) (Ack 17:25 KHoerner) (17:36 KHoerner) Serum Quantitative Urgent (17:08/29/2016 HBivens A.R.N.P.) (Ack 17:25 KHoerner) (17:36 KHoerner) Pelvic Exam Setup (17:24 08/29/2016 HBivens A.R.N.P.) (18:16 LAbe R.N.) MEDICATION ORDERS: Acetaminophen PO 1,000 mg (NOW) (17:37 08/29/2016 HBivens A.R.N.P.) (18:28 LAbe R.N.) IV FLUIDS: ORDER SHEET NOTES: [Electronically signed by Olive Quiroz R.N. (18:30 08/29/2016)] [Electronically signed by Zee RichardsonR.NPattiPPatti (19:43 08/29/2016)] [Electronically locked/signed by Olive Quiroz R.N. (18:30 08/29/2016)]
--- NOTE | 2016-08-29 18:09 | ED CLINICAL REPORT ---
Clinical Report - Physicians/Mid Levels [facility] [address] [place] [address] 08/29/2016 17:03 Patient: ENRIKE PRADO Time Seen: 17:17; initial patient contact, initial documentation, patient care assumed. Arrived- By private vehicle. Historian- patient. HISTORY OF PRESENT ILLNESS Chief Complaint: PELVIC PAIN and VAGINAL BLEEDING. This started about 1 weeks ago or longer and still present. The symptoms are described as mild. Modifying factors. Not worsened by anything. Not relieved by anything. The patient has had crampy pelvic pain, described as "pain". She has had abnormal bleeding described as spotting. No abdominal pain, vaginal pain, low back pain, flank pain or missed period(s). No irregular periods, vaginal discharge, pain with urination, urinary frequency or urgency of urination. No hematuria. Sexually active. Does not use control measures. Currently . In 1st trimester. Has had no care. No recent sonogram. G 6. P 3. Ab 2. Not receiving care. Similar symptoms previously: Twice, worse. Recent medical care: The patient was seen recently in the office. ( went to dr bustillos, ordered US, but it wasn't done due to insurance, so sent here for eval). REVIEW OF SYSTEMS No nausea, vomiting, diarrhea or fever. She has had a headache. All systems otherwise negative, except as recorded above. PAST HISTORY See nurses notes. ( PROBLEMS: Discomfort of . Abdominal Pain. . Atypical Chest Pain. Lumbar Strain. Dizziness. Headache. UTI - Urinary Tract Infection. --17:14 Olive Quiroz, R.N.). SOCIAL HISTORY Never smoker. No alcohol use or drug use. No recent travel. Is a local resident. FAMILY HISTORY Negative. ADDITIONAL NOTES The nursing notes have been reviewed with agreement regarding the chief complaint, HPI, ROS, PMH and patient medications and allergies. PHYSICAL EXAM Vital Signs: 08/29/2016 17:10 BP: 119/65. HR: 83. RR: 18. O2 saturation: 100%. Temp: 97.8 F. Have been reviewed as normal and appear to be correct. Appearance: Alert. Oriented X3. No acute distress. HEENT: Normal external inspection. ENT: Pharynx normal. Neck: Neck supple. CVS: Heart sounds normal. Respiratory: No respiratory distress. Breath sounds normal. Chest nontender. Abdomen: Soft and nontender. Bowel sounds normal. No organomegaly. No mass. Back: Normal external inspection. : External inspection normal. Speculum exam abnormal. Slight vaginal bleeding, consisting of bright red blood, via the cervical os. No vaginal discharge. Cervical os closed. No tissue present. No cervicitis. No herpes-like lesions. Bimanual exam normal. 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 Skin: Skin warm and dry. Normal skin color. No rash. Normal skin turgor. Extremities: Extremities nontender. No lower extremity edema. Neuro: Oriented X 3. Mood/affect normal. No motor deficit. No sensory deficit. LABS, X-RAYS, AND EKG Pelvic Sonogram: . 8w3d iup demise verbal report given to Dr Perry by Conject. Interpretation time: 17:55. Laboratory Tests: UA-Culture if indicated: (CLARENCE: 08/29/2016 17:15) ( MsgRcvd 08/29/2016 17:38) Final results Test Result Flag Units (Reference) URINE COLOR STRAW URINE APPEARANCE CLEAR URINE GLUCOSE NEGATIVE (NEGATIVE) URINE BILIRUBIN NEGATIVE (NEGATIVE) URINE KETONE NEGATIVE (NEGATIVE) URINE SPECIFIC GRAVITY 1.015 (1.010-1.030) URINE PH 5.5 (5.0-8.0) URINE PROTEIN NEGATIVE (NEGATIVE) URINE UROBILINOGEN 0.2 EU/dL (0.2-1.0) URINE NITRITE NEGATIVE (NEGATIVE) URINE BLOOD 3+ (NEGATIVE) URINE LEUK ESTERASE NEGATIVE (NEGATIVE) URINE RBC 1-3 rbc/hpf (0-1) URINE WBC 0-1 wbc/hpf (0-1) URINE EPITHELIAL CELLS 0-1 EPI/hpf (0-5) URINE BACTERIA TRACE (<1+) (NONE SEEN) URINE COMMENT CULT NOT INDICATED URINE CULTURES ARE SET-UP BASED ON THE FOLLOWING CRITERIA:POSITIVE NITRITEPOSITIVE LEUKOCYTE ESTERASEGREATER THAN 10 WHITE BLOOD CELLSMODERATE (2+) OR GREATER BACTERIA Urine: (CLARENCE: 08/29/2016 17:15) ( MsgRcvd 08/29/2016 17:31) Final results Test Result Flag Units (Reference) URINE POSITIVE CBC w Diff: (CLARENCE: 08/29/2016 17:35) ( [facility] [place] 17:57[place] Final results Test Result Flag Units (Reference) WHITE BLOOD COUNT 7.4 K/uL (4.5-11.5) RED BLOOD COUNT 4.31 M/uL (4.00-5.20) HEMOGLOBIN 12.1 gm/dL (12.0-16.0) HEMATOCRIT 36.2 % (36.0-46.0) MEAN CELL VOLUME 84 fL (80-100) MEAN CORPUSCULAR HGB 28 pg (26-34) MEAN CORPUSCULAR HGB CONC 34 g/dL (31-37) RED CELL DISTRIBUTION WIDTH 13.0 % (11.6-14.8) PLATELET COUNT 250 K/uL (150-400) NEUTROPHIL % 66.7 % (50-75) LYMPH % 23.3 L % (25-40) MONO % 6.5 % (3-14) EOSINOPHIL % 2.9 % (0-4) BASOPHIL % 0.6 % (0-2) CMP: (CLARENCE: 08/29/2016 17:35) ( [facility] [place] 18:28) Final results Test Result Flag Units (Reference) GLUCOSE 111 H mg/dL (70-110) BUN 9 mg/dL (7-18) CREATININE 0.6 mg/dL (0.6-1.3) Estimated GFR >60 mL/min Estimated GFR- >60 mL/min Note: Persistent reduction over 3 months in eGFR<60 mL/min/1.73 m2 defines CKD. Patients with eGFR values>=60 mL/min/1.73 m2 may also have CKD if evidence ofpersistent proteinuria. Additional information may be foundat www.kidney.org. SODIUM 138 mmol/L (136-145) POTASSIUM 3.5 mmol/L (3.5-5.1) CHLORIDE 104 mmol/L (98-107) CARBON DIOXIDE 26 mmol/L (21-32) CALCIUM 8.5 mg/dL (8.5-10.1) TOTAL PROTEIN 6.9 g/dL (6.4-8.2) ALBUMIN 3.6 g/dL (3.3-5.0) BILIRUBIN, TOTAL 0.6 mg/dL (0.0-1.0) ALKALINE PHOSPHATASE 65 U/L (46-116) AST (SGOT) 11 L U/L (15-37) ALT (SGPT) 16 U/L (12-78) BETA HCG, QUANTITATIVE 61125 mIU/mL REFERENCE RANGE:Adult Males: <2 mIU/mLNon- Females: <6 mIU/mL Females:Approximate Approximate hCGGestational Age Range (mIU/mL) 0-1 week 0-501-2 weeks 40-3002-3 weeks 100-24332-5 weeks 500-61356-6 months 5,000-200,0002-3 months 10,000-100,0002nd trimester 3,000-50,0003rd trimester 1,000-50,000 Type & Rh: (CLARENCE: 08/29/2016 17:35) ( MsgRcvd 08/29/2016 18:14) Final results Test Result Flag Units (Reference) PATIENT BLOOD TYPE O Positive . PROGRESS AND PROCEDURES Course of Care: 17:52 08/29/16. US at bedside. 08/29/2016 18:24 BP: 115/59. HR: 83. RR: 18. O2 saturation: 97%. Temp: 98.2 F. Vital Signs: have been reviewed as normal and appear to be correct. Patient counseled in person regarding the patient's stable condition, test results and diagnosis. 1800. Differential Diagnosis: I considered vaginitis, vaginal polyps, vaginal lesion, vaginal cancer, vulvar infection, ovarian cysts, polycystic disease of the ovaries, pelvic inflammatory disease, endometriosis, uterine fibroids, uterine polyps, intrauterine , ectopic , incomplete , threatened , retained products of , endometritis and atrophic vaginitis as a possible cause of vaginal bleeding in this patient. This is a partial list of diagnoses considered. Above considerations are based on history, physical exam, reassessment, laboratory data and other information. Differential diagnosis was discussed with patient. Disposition: Discharged home in good and unchanged condition (18:08). Condition: good and stable. CLINICAL IMPRESSION Incomplete spontaneous (miscarriage). Positive test in the emergency department.No complications. INSTRUCTIONS Warnings: GENERAL WARNINGS: Return or contact your physician immediately if your condition worsens or changes unexpectedly, if not improving as expected, or if other problems arise. Specifically return if problem worsens. Follow-up: Follow up with your doctor Friday even if well. Call for an appointment. Summary of care provided to patient. Understanding of the discharge instructions verbalized by patient. (Electronically signed by Zee Richardson A.R.N.P. 08/29/2016 19:43)
--- NOTE | 2016-08-29 18:09 | ED CLINICAL REPORT ---
Clinical Report - Physicians/Mid Levels [facility] [address] [place] [address] 08/29/2016 17:03 Patient: ENRIKE PRADO Time Seen: 17:17; initial patient contact, initial documentation, patient care assumed. Arrived- By private vehicle. Historian- patient. HISTORY OF PRESENT ILLNESS Chief Complaint: PELVIC PAIN and VAGINAL BLEEDING. This started about 1 weeks ago or longer and still present. The symptoms are described as mild. Modifying factors. Not worsened by anything. Not relieved by anything. The patient has had crampy pelvic pain, described as "pain". She has had abnormal bleeding described as spotting. No abdominal pain, vaginal pain, low back pain, flank pain or missed period(s). No irregular periods, vaginal discharge, pain with urination, urinary frequency or urgency of urination. No hematuria. Sexually active. Does not use control measures. Currently . In 1st trimester. Has had no care. No recent sonogram. G 6. P 3. Ab 2. Not receiving care. Similar symptoms previously: Twice, worse. Recent medical care: The patient was seen recently in the office. ( went to dr bustillos, ordered US, but it wasn't done due to insurance, so sent here for eval). REVIEW OF SYSTEMS No nausea, vomiting, diarrhea or fever. She has had a headache. All systems otherwise negative, except as recorded above. PAST HISTORY See nurses notes. ( PROBLEMS: Discomfort of . Abdominal Pain. . Atypical Chest Pain. Lumbar Strain. Dizziness. Headache. UTI - Urinary Tract Infection. --17:14 Olive Quiroz, R.N.). SOCIAL HISTORY Never smoker. No alcohol use or drug use. No recent travel. Is a local resident. FAMILY HISTORY Negative. ADDITIONAL NOTES The nursing notes have been reviewed with agreement regarding the chief complaint, HPI, ROS, PMH and patient medications and allergies. PHYSICAL EXAM Vital Signs: 08/29/2016 17:10 BP: 119/65. HR: 83. RR: 18. O2 saturation: 100%. Temp: 97.8 F. Have been reviewed as normal and appear to be correct. Appearance: Alert. Oriented X3. No acute distress. HEENT: Normal external inspection. ENT: Pharynx normal. Neck: Neck supple. CVS: Heart sounds normal. Respiratory: No respiratory distress. Breath sounds normal. Chest nontender. Abdomen: Soft and nontender. Bowel sounds normal. No organomegaly. No mass. Back: Normal external inspection. : External inspection normal. Speculum exam abnormal. Slight vaginal bleeding, consisting of bright red blood, via the cervical os. No vaginal discharge. Cervical os closed. No tissue present. No cervicitis. No herpes-like lesions. Bimanual exam normal. 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 Skin: Skin warm and dry. Normal skin color. No rash. Normal skin turgor. Extremities: Extremities nontender. No lower extremity edema. Neuro: Oriented X 3. Mood/affect normal. No motor deficit. No sensory deficit. LABS, X-RAYS, AND EKG Pelvic Sonogram: . 8w3d iup demise verbal report given to Dr Perry by [employer]. Interpretation time: 17:55. Laboratory Tests: UA-Culture if indicated: (CLARENCE: 08/29/2016 17:15) ( MsgRcvd 08/29/2016 17:38) Final results Test Result Flag Units (Reference) URINE COLOR STRAW URINE APPEARANCE CLEAR URINE GLUCOSE NEGATIVE (NEGATIVE) URINE BILIRUBIN NEGATIVE (NEGATIVE) URINE KETONE NEGATIVE (NEGATIVE) URINE SPECIFIC GRAVITY 1.015 (1.010-1.030) URINE PH 5.5 (5.0-8.0) URINE PROTEIN NEGATIVE (NEGATIVE) URINE UROBILINOGEN 0.2 EU/dL (0.2-1.0) URINE NITRITE NEGATIVE (NEGATIVE) URINE BLOOD 3+ (NEGATIVE) URINE LEUK ESTERASE NEGATIVE (NEGATIVE) URINE RBC 1-3 rbc/hpf (0-1) URINE WBC 0-1 wbc/hpf (0-1) URINE EPITHELIAL CELLS 0-1 EPI/hpf (0-5) URINE BACTERIA TRACE (<1+) (NONE SEEN) URINE COMMENT CULT NOT INDICATED URINE CULTURES ARE SET-UP BASED ON THE FOLLOWING CRITERIA:POSITIVE NITRITEPOSITIVE LEUKOCYTE ESTERASEGREATER THAN 10 WHITE BLOOD CELLSMODERATE (2+) OR GREATER BACTERIA Urine: (CLARENCE: 08/29/2016 17:15) ( MsgRcvd 08/29/2016 17:31) Final results Test Result Flag Units (Reference) URINE POSITIVE CBC w Diff: (CLARENCE: 08/29/2016 17:35) ( [facility] 08/29/2016 17:57) Final results Test Result Flag Units (Reference) WHITE BLOOD COUNT 7.4 K/uL (4.5-11.5) RED BLOOD COUNT 4.31 M/uL (4.00-5.20) HEMOGLOBIN 12.1 gm/dL (12.0-16.0) HEMATOCRIT 36.2 % (36.0-46.0) MEAN CELL VOLUME 84 fL (80-100) MEAN CORPUSCULAR HGB 28 pg (26-34) MEAN CORPUSCULAR HGB CONC 34 g/dL (31-37) RED CELL DISTRIBUTION WIDTH 13.0 % (11.6-14.8) PLATELET COUNT 250 K/uL (150-400) NEUTROPHIL % 66.7 % (50-75) LYMPH % 23.3 L % (25-40) MONO % 6.5 % (3-14) EOSINOPHIL % 2.9 % (0-4) BASOPHIL % 0.6 % (0-2) CMP: (CLARENCE: 08/29/2016 17:35) ( [facility] 08/29/2016 18:28) Final results Test Result Flag Units (Reference) GLUCOSE 111 H mg/dL (70-110) BUN 9 mg/dL (7-18) CREATININE 0.6 mg/dL (0.6-1.3) Estimated GFR >60 mL/min Estimated GFR- >60 mL/min Note: Persistent reduction over 3 months in eGFR<60 mL/min/1.73 m2 defines CKD. Patients with eGFR values>=60 mL/min/1.73 m2 may also have CKD if evidence ofpersistent proteinuria. Additional information may be foundat www.kidney.org. SODIUM 138 mmol/L (136-145) POTASSIUM 3.5 mmol/L (3.5-5.1) CHLORIDE 104 mmol/L (98-107) CARBON DIOXIDE 26 mmol/L (21-32) CALCIUM 8.5 mg/dL (8.5-10.1) TOTAL PROTEIN 6.9 g/dL (6.4-8.2) ALBUMIN 3.6 g/dL (3.3-5.0) BILIRUBIN, TOTAL 0.6 mg/dL (0.0-1.0) ALKALINE PHOSPHATASE 65 U/L (46-116) AST (SGOT) 11 L U/L (15-37) ALT (SGPT) 16 U/L (12-78) BETA HCG, QUANTITATIVE 57994 mIU/mL REFERENCE RANGE:Adult Males: <2 mIU/mLNon- Females: <6 mIU/mL Females:Approximate Approximate hCGGestational Age Range (mIU/mL) 0-1 week 0-501-2 weeks 40-3002-3 weeks 100-45623-0 weeks 500-94593-2 months 5,000-200,0002-3 months 10,000-100,0002nd trimester 3,000-50,0003rd trimester 1,000-50,000 Type & Rh: (CLARENCE: 08/29/2016 17:35) ( MsgRcvd 08/29/2016 18:14) Final results Test Result Flag Units (Reference) PATIENT BLOOD TYPE O Positive . PROGRESS AND PROCEDURES Course of Care: 17:52 08/29/16. US at bedside. 08/29/2016 18:24 BP: 115/59. HR: 83. RR: 18. O2 saturation: 97%. Temp: 98.2 F. Vital Signs: have been reviewed as normal and appear to be correct. Patient counseled in person regarding the patient's stable condition, test results and diagnosis. 1800. Differential Diagnosis: I considered vaginitis, vaginal polyps, vaginal lesion, vaginal cancer, vulvar infection, ovarian cysts, polycystic disease of the ovaries, pelvic inflammatory disease, endometriosis, uterine fibroids, uterine polyps, intrauterine , ectopic , incomplete , threatened , retained products of , endometritis and atrophic vaginitis as a possible cause of vaginal bleeding in this patient. This is a partial list of diagnoses considered. Above considerations are based on history, physical exam, reassessment, laboratory data and other information. Differential diagnosis was discussed with patient. Disposition: Discharged home in good and unchanged condition (18:08). Condition: good and stable. CLINICAL IMPRESSION Incomplete spontaneous (miscarriage). Positive test in the emergency department.No complications. INSTRUCTIONS Warnings: GENERAL WARNINGS: Return or contact your physician immediately if your condition worsens or changes unexpectedly, if not improving as expected, or if other problems arise. Specifically return if problem worsens. Follow-up: Follow up with your doctor Friday even if well. Call for an appointment. Summary of care provided to patient. Understanding of the discharge instructions verbalized by patient. (Electronically signed by Zee Richardson A.R.N.P. 08/29/2016 19:43)
--- NOTE | 2016-08-29 18:09 | ED NURSING NOTES ---
Clinical Report - Nurses [facility] [address] [place] [address] 08/29/2016 17:03 Patient: ENRIKE PRADO TRIAGE Triage time 17:10. Acuity: LEVEL 3. Chief Complaint: ABDOMINAL CRAMPS and SPOTTING. Alert. No acute distress. --17:18 Olive Quiroz R.N. 17:10 08/29/16. BP: 119/65. HR: 83. RR: 18. O2 saturation: 100%. Temp: 97.8 F. --17:18 Olive Quiroz R.N. Weight: 68 kg stated. Height/Length: 65 inches Per Patient. BMI: 25. --17:17 Olive Quiroz R.N. Medications Vits. --17:14 Olive Quiroz R.N. Allergies No Known Drug Allergy. --17:14 Olive Quiroz R.N. History Arrived by private vehicle. Historian: patient. Primary physician (Luis). Onset. (1 weeks ago). ( thinks she is about 10 weeks . Seen at doctor's today and was sent for US but they don't take her insurance. "Dr. Stevens think there may be demise".). She has had nausea. ( feels disoriented and has headache.). PAST MEDICAL HX: Immunizations: up-to-date. Last normal menstrual period unknown. Currently : 10 weeks. SOCIAL HX: Never smoker. No alcohol use or drug use. No infectious disease exposure. ABUSE ASSESSMENT: No report of abuse. SELF HARM ASSESSMENT: A self harm assessment was performed. The patient answered "no" to the question "Do you have thoughts of harming or killing yourself?" and "Are you here because you tried to hurt yourself?". FALL RISK ASSESSMENT: Fall risk assessment completed. No fall risk identified. NUTRITIONAL RISK ASSESSMENT: The nutritional risk assessment revealed no deficiencies. FUNCTIONAL ASSESSMENT: Functional assessment: no impairments noted. LEARNING NEEDS ASSESSMENT: The learning needs assessment revealed no barriers. SKIN INTEGRITY ASSESSMENT: Skin integrity risk assessment completed. No skin integrity risk identified. --17:18 Olive Quiroz R.N. PROBLEMS: Discomfort of . Abdominal Pain. . Atypical Chest Pain. Lumbar Strain. Dizziness. Headache. UTI - Urinary Tract Infection. --17:14 Olive Quiroz R.N. Interventions ID band on patient. To treatment room. --17:18 Olive Quiroz R.N. PHYSICAL ASSESSMENT Ambulatory to room. Patient gowned. GENERAL / NEURO / PSYCH: Alert. Oriented X 4. Appears in no acute distress. RESPIRATORY: Respirations not labored. GI / : Vaginal bleeding present. --17:18 Olive Quiroz R.N. NURSING PROGRESS NOTES Patient gowned. Head of bed elevated. Two patient identifiers checked. Call light placed in reach. Side rails up x 2. Bed placed in lowest position. Brakes of bed on. Patient ready for evaluation- chart flagged. ED physician notified. Patient waiting for evaluation. --17:19 Olive Quiroz R.N. DISPOSITION / DISCHARGE 18:20 08/29/2016 Acetaminophen (APAP) PO 1000 mg given. Allergies verified and confirmed 5 rights. --18:28 Olive Quiroz R.N. 18:25. Condition at departure: improved. No learning barriers present. Discharge instructions provided and reviewed with the patient. Patient verbalized understanding. Written instructions provided in Surinamese. The patient was discharged home. She left the Emergency Department ambulatory and via private vehicle. Patient driving. --18:29 Olive Quiroz R.N. 18:24 08/29/16. BP: 115/59. HR: 83. RR: 18. O2 saturation: 97%. Temp: 98.2 F. Pain level now 6/10. --18:29 Olive Quiroz R.N. Locked/Released at 08/29/2016 18:30 by Olive Quiroz R.N.
--- NOTE | 2016-08-29 18:09 | ED ORDER SUMMARY ---
..... Patient: ENRIKE PRADO OrderSheet [facility] VisitID: [id number] [address] [place] [address] 31y, F Registration Date/Time: 08/29/2016 ORDER SHEET Weight: 68.0 kg (stated) Allergies: No Known Drug Allergy GENERAL ORDERS: Urine Urgent (17:08/29/2016 LAbe R.N. per protocol) (Ack 17:22 KHoerner) UA-Culture if indicated Urgent (17:08/29/2016 LAbe R.N. per protocol) (Ack 17:22 KHoerner) US OB 1st Trimester w Transvag (10 wks) Urgent (17:08/29/2016 HBivens A.R.N.P.) (Ack 17:25 KHoerner) CBC w Diff Urgent (17:08/29/2016 HBivens A.R.N.P.) (Ack 17:25 KHoerner) (17:36 KHoerner) CMP Urgent (17:08/29/2016 HBivens A.R.N.P.) (Ack 17:25 KHoerner) (17:36 KHoerner) Type & Rh Urgent (17:08/29/2016 HBivens A.R.N.P.) (Ack 17:25 KHoerner) (17:36 KHoerner) Serum Quantitative Urgent (17:08/29/2016 HBivens A.R.N.P.) (Ack 17:25 KHoerner) (17:36 KHoerner) Pelvic Exam Setup (17:24 08/29/2016 HBivens A.R.N.P.) (18:16 LAbe R.N.) MEDICATION ORDERS: Acetaminophen PO 1,000 mg (NOW) (17:37 08/29/2016 HBivens A.R.N.P.) (18:28 LAbe R.N.) IV FLUIDS: ORDER SHEET NOTES: [Electronically signed by Olive Quiroz R.N. (18:30 08/29/2016)] [Electronically signed by Zee RichardsonR.NPattiPPatti (19:43 08/29/2016)] [Electronically locked/signed by Olive Quiroz R.N. (18:30 08/29/2016)]
--- NOTE | 2016-08-29 18:19 | DIAGNOSTIC IMAGING REPORT ---
PROCEDURE: US OB 1ST TRIMESTER W/TRANSVAG INDICATION: ABNORMAL BLEEDING TECHNIQUE: Ortega scale, color, and spectral Doppler transabdominal and endovaginal sonographic images of the first trimester gravid uterus were obtained. COMPARISON: OB ultrasound 08/14/2016. FINDINGS: TRANSABDOMINAL SCANS: Single intrauterine gestational sac. Partially visualized kidneys are unremarkable. TRANSVAGINAL SCANS: Retroverted uterus. Yolk sac present. Abnormally shaped gestational sac and pole which measures 2.0 cm, 8 weeks 4 days. No cardiac activity noted. No interval growth. Small amount of fluid/blood in the endocervical canal. Left ovary is unremarkable. 2.8 cm right ovarian cyst. IMPRESSION: 1. Findings consistent with demise 2. Results discussed with Dr. Perry.
--- NOTE | 2016-08-29 19:44 | ED MAR SUMMARY ---
..... Medication Administration Record [facility] [address] [place] [address] Patient: ENRIKE PRADO Visit ID: [id number] 31y, F Weight: 68.0 kg Height/Length: 65 in BMI: 25 ALLERGIES: No Known Drug Allergy Given 18:20 08/29/2016 Olive Quiroz R.N. Medication Administered: ACETAMINOPHEN [PO] (APAP), Dose: 1000 mg PO. Medication Ordered: Acetaminophen PO 1,000 mg (NOW).
--- NOTE | 2016-08-29 19:44 | ED MED RECONCILIATION SUMMARY ---
Patient: ENRIKE PRADO Medication Reconciliation Report [facility] VisitID: [id number] [address] [place] [address] 31y, F Registration Date/Time: 08/29/2016 Weight: 68.0 kg Height/Length: 65 in. BMI: 25.0 ALLERGIES: No Known Drug Allergy The patient's Home Medications are listed below: THE FOLLOWING MEDICATIONS NEED TO BE RECONCILED: Vits The source(s) of the original Home Medication information: Not obtained. The following Medications were given to the patient in the Emergency Department: Acetaminophen [PO] PO 1000 mg, administered: 08/29/2016 6:20:00 PM The following Medications were prescribed to the patient: None.
--- NOTE | 2016-08-29 19:44 | ED MAR SUMMARY ---
..... Medication Administration Record [facility] [address] [place] [address] Patient: ENRIKE PRADO Visit ID: [id number] 31y, F Weight: 68.0 kg Height/Length: 65 in BMI: 25 ALLERGIES: No Known Drug Allergy Given 18:20 08/29/2016 Olive Quiroz R.N. Medication Administered: ACETAMINOPHEN [PO] (APAP), Dose: 1000 mg PO. Medication Ordered: Acetaminophen PO 1,000 mg (NOW).
--- NOTE | 2016-08-29 19:44 | ED DISCHARGE INSTRUCTIONS ---
Patient: ENRIKE PRADO General Instructions [facility] VisitID: [id number] [place] [address] 31y, F Registration Date/Time: 08/29/2016 Incomplete spontaneous (miscarriage). Positive test in the emergency department.No complications. INSTRUCTIONS Warnings: GENERAL WARNINGS: Return or contact your physician immediately if your condition worsens or changes unexpectedly, if not improving as expected, or if other problems arise. Specifically return if problem worsens. Follow-up: Follow up with your doctor Friday even if well. Call for an appointment. Summary of care provided to patient. Understanding of the discharge instructions verbalized by patient. ADDITIONAL INFORMATION Miscarriage, Spontaneous (Completed) Todays exam shows that your has ended suddenly. While this may be an emotionally difficult time for you, know that it is not an uncommon event. A miscarriage can be due to various causes. These include a problem with the babys chromosomes (genes that carry the information needed for life) or with fertilization or implantation that didnt happen correctly. In most cases no cause can be found. Be assured that this miscarriage was not the result of anything that you did wrong, and it will not interfere with your ability to become in the future. It appears that your miscarriage is complete and all tissue from the has passed. If there are parts of the tissue that remain in the uterus, you will probably have more cramping and bleeding. Home Care: You may resume normal activities if you are not having heavy bleeding or pain. Until the bleeding stops completely and to prevent infection: Do not have sexual intercourse for as long as your healthcare provider tells you. Use sanitary pads instead of tampons. Do not douche. If you feel sadness or grief, it may help to talk about your feelings with family and friends, or with a counselor. Follow Up: Make an appointment to see your doctor in the next one to two weeks for a checkup. If cramping and bleeding return and continue for more than a few days, call your doctor or return here for an exam. The doctor may need to remove remaining tissue from the uterus to stop the bleeding and prevent infection. Or, you may be prescribed medication to take at home to help your body expel the remaining tissue. Note: If you had an ultrasound it will be reviewed by a specialist. You will be notified of any new findings that may affect your care. Get Prompt Medical Attention if any of the following occur: Heavy bleeding (soaking one new pad an hour over three hours) Bleeding that does not stop after ten days Foul-smelling vaginal discharge Fever of 100.4F (38C) or higher, or as directed by your healthcare provider Increasing lower abdominal pain Weakness, dizziness, or fainting You have been given the following additional information: Miscarriage, Spontaneous (Completed) (Electronically signed by Zee Richardson A.R.N.P. 08/29/2016 19:43)
--- NOTE | 2016-08-29 19:44 | ED MED RECONCILIATION SUMMARY ---
Patient: ENRIKE PRADO Medication Reconciliation Report [facility] VisitID: [id number] [address] [place] [address] 31y, F Registration Date/Time: 08/29/2016 Weight: 68.0 kg Height/Length: 65 in. BMI: 25.0 ALLERGIES: No Known Drug Allergy The patient's Home Medications are listed below: THE FOLLOWING MEDICATIONS NEED TO BE RECONCILED: Vits The source(s) of the original Home Medication information: Not obtained. The following Medications were given to the patient in the Emergency Department: Acetaminophen [PO] PO 1000 mg, administered: 08/29/2016 6:20:00 PM The following Medications were prescribed to the patient: None.
== END 2016-08-29 18:25 | disposition home or self-care (01) ==
LOC: ED SRH 17:01
DX: O03.4 Incomplete spontaneous abortion without complication (principal); Z3A.08 8 weeks gestation of pregnancy
CPT/HCPCS: 90001; 90004; 90074; 90100; 90155; 90197; 93070; 95059